=== PATIENT | male | born 1960 | race Caucasian/White ===

== ENCOUNTER 2020-09-27 09:02 | Outpatient (REF) | payer MEDICARE, MEDICAID, SELFPAY | END 2020-09-27 09:03 | disposition home or self-care (01) | LOC: HO.LAB 09:02 | PROVIDERS: Visit Provider Internal Medicine | DX: Z20.822 Contact with and (suspected) exposure to COVID-19 (principal) | CPT/HCPCS: 36415; C9803; U0003; U0005 ==

== ENCOUNTER 2021-01-13 19:35 | Emergency (ER) | payer MEDICARE, MEDICAID, SELFPAY ==
--- NOTE | ~2021-01-13 | XR_ITS ---
EXAMINATION: XR RIBS, RIGHT CLINICAL INFORMATION: Fall. Pain. COMPARISON: Chest x-ray 09/22/2019 TECHNIQUE: Frontal view of chest 3 views of the right ribs were obtained. FINDINGS: Asymmetric elevation of right diaphragm compared to left. Blunting of right costophrenic angle. This may be due to a small pleural effusion or pleural thickening. This is new since prior study 09/22/2019. Also new since prior chest x-ray is the transpedicular screws and vertical stabilization bars of the mid upper thoracic spine vertebral bodies. No acute change of chest. No pulmonary vascular congestion. No pneumothorax. No focal airspace consolidation. Multiple old healed right-sided rib fractures involving the right posterior sixth through ninth ribs. No acute osseous abnormality. XR/XR ribs RT min 3V w CXR1V IMPRESSION: 1. Old healed fractures of the right posterior sixth through ninth ribs. No acute osseous abnormality. Status post fusion with transpedicular screws of the thoracic spine. 2. Elevated right diaphragm with blunting right costophrenic angle. This may be due to pleural thickening or pleural effusion.
--- NOTE | ~2021-01-13 | XR_ITS ---
EXAMINATION: XR SHOULDER, RIGHT CLINICAL INFORMATION: Fall. Decreased range of motion. COMPARISON: None TECHNIQUE: Three views of the right shoulder. FINDINGS: There is no fracture. No dislocation. No soft tissue calcification. There is degenerative spur of the inferior humeral head of the glenohumeral joint. There are spurs of the acromion and clavicle at the acromioclavicular joint. A spur of the inferior acromion may be causing impingement at the rotator cuff. XR/XR shoulder RT min 2V IMPRESSION: 1. No acute abnormality. 2. Degenerative change of the acromioclavicular and glenohumeral joints.
[2021-01-13 20:42] VITALS: BP 156/83; PULSE 80; RESP 20; TEMP 36.4; O2SAT 96; BMI 28.8
--- NOTE | 2021-01-13 21:39 | ED.FALL ---
HPI - Fall General Chief Complaint: Fall Stated Complaint: fall Time Seen by Provider: 01/13/21 21:21 Source: patient Mode of arrival: ambulatory Limitations: no limitations History of Present Illness HPI Narrative: Patient fell sideways offices today broke his fall using his right outstretched hand complaining of pain in the right shoulder area increased pain on lifting his arm above his shoulder also complaining of pain in the right upper ribs no difficulty in breathing no head injury no other injuries Related Data Previous Rx's Medication Instructions Recorded cyclobenzaprine 10 mg PO Q8H #20 tab 01/13/21 oxycodone 5 mg PO Q6H PRN #20 tab 01/13/21 Allergies Allergy/AdvReac Type Severity Reaction Status Date / Time ciprofloxacin [Cipro] Allergy Unknown had Verified 01/13/21 20:42 itchness once been on since lactose [Lactose] AdvReac Mild DIARRHEA Verified 01/13/21 20:42 Review of Systems Review of Systems: Yes all other systems are reviewed and are negative [facility] Social History Social History Advance Directives: No Advance Directives Information Provided: No Physical Exam Vital Signs: Vital Signs: Last Vital Signs Temp 97.6 F 01/13/21 20:42 Pulse 80 01/13/21 20:42 Resp 20 01/13/21 20:42 BP 156/83 H 01/13/21 20:42 Pulse Ox 96 01/13/21 20:42 Body Mass Index 28.8 Const: General: no acute distress and well developed Orientation/consciousness: patient oriented x3 HENMT: Head: Yes normocephalic and Yes atraumatic Neck: Neck: Yes normal visual inspection, Yes full ROM and No midline deformity Chest: Chest palpation & inspection: normal inspection of the chest Chest/axillae images: 1. Mild tenderness right mid thoracic area in mid axillary line no focal tenderness or crepitus Resp: Effort & Inspection: normal respiratory effort Auscultation: clear to auscultation bilaterally Cardio: Palpation: normal PMI Rate: regular rate Rhythm: regular rhythm Heart sounds: S1 normal heart sound present and S2 normal heart sound present GI: Inspection: Yes normal to inspection Palpation (GI): Soft to palpation and nontender : General: Yes no CVA tenderness Back/Spine/Pelvis: Back: no CVA tenderness Thoracic/Lumbar Spine: thoracic and lumbar spine normal to inspection Neuro: General: patient oriented x3, gait normal, moves all extremities and no focal motor deficits Extrem: Shoulder/upper arm images: 1. Right rotator cuff tenderness, increased pain on abduction of the right shoulder above 45 degrees open can test positive on right side neurovascular intact MDM - Fall MDM Narrative Medical decision making narrative: Patient clinically has right rotator cuff tendinitis not rupture. X-ray negative for fracture or fluid collection Discharge Plan Discharge Clinical Impression: Strain of tendon of right rotator cuff Qualifiers: Encounter type: initial encounter Qualified Code(s): S46.011A - Strain of muscle(s) and tendon(s) of the rotator cuff of right shoulder, initial encounter Patient Disposition: Home, Self-Care Instructions: Rotator Cuff Injury (ED) Additional Instructions: Rest her right shoulder. Use sling for support. Pain medicine as advised. Follow-up with Orthopedics for further evaluation and treatment Prescriptions: New cyclobenzaprine 10 mg tablet 10 mg PO Q8H Qty: 20 RF: 0 oxycodone 5 mg tablet 5 mg PO Q6H PRN (Reason: Pain, Moderate) Qty: 20 RF: 0
[2021-01-13] MEDS: oxyCODONE HCl Immed Release 5 MG TABLET 10 MG PO (22:10)
== END 2021-01-13 22:50 | disposition home or self-care (01) ==
PROVIDERS: Emergency Provider Internal Medicine; PCP Internal Medicine
DX: S46.011A Strain of muscle(s) and tendon(s) of the rotator cuff of right shoulder, initial encounter (principal); W17.89XA Other fall from one level to another, initial encounter; Y93.89 Activity, other specified; Y92.017 Garden or yard in single-family (private) house as the place of occurrence of the external cause; Y99.9 Unspecified external cause status; E66.9 Obesity, unspecified; J44.9 Chronic obstructive pulmonary disease, unspecified
CPT/HCPCS: 71101; 73030; 99283; 99284

== ENCOUNTER 2021-01-23 12:52 | Outpatient (REF) | payer MEDICARE, MEDICAID, SELFPAY ==
--- NOTE | ~2021-01-23 | XR_ITS ---
EXAMINATION: XR CHEST CLINICAL INFORMATION: Shortness of breath COMPARISON: Chest 01/13/2021 TECHNIQUE: 2 views of the chest were obtained. FINDINGS: There is mild blunting of right CP angle with an haziness in right lung base likely effusion with underlying atelectasis at size enlarged. Pulmonary vascularity is normal. Previously visualized right posterior lower rib fractures are not clearly visualized. Abnormality seen in the right lower lobe is likely related to the rib fractures XR/XR chest 2V IMPRESSION: On the right CP angle from pleural effusion/thickening and underlying right lower lobe atelectasis. Previously visualized right rib fractures are not well seen at this time is
== END 2021-01-23 12:53 | disposition home or self-care (01) ==
LOC: HO.HMGCX 12:52
PROVIDERS: PCP Internal Medicine; Visit Provider Hospitalist
DX: R06.02 Shortness of breath (principal)
CPT/HCPCS: 71046

== ENCOUNTER 2021-01-23 13:52 | Emergency (ER) | payer MEDICARE, MEDICAID, SELFPAY ==
--- NOTE | ~2021-01-23 | CT_ITS ---
EXAMINATION: CT ANGIOGRAM OF THE CHEST WITH AND WITHOUT CONTRAST (CT PULMONARY ANGIOGRAM FOR PE) CLINICAL INFORMATION: Reason for Exam pt c sob ? pe COMPARISON: Chest CT dated October 28, 2017. TECHNIQUE: Prior to contrast administration, noncontrast localization images were obtained. Subsequently, multidetector volumetric imaging was performed from the thoracic inlet to below the diaphragms following the administration of 80 mL Omnipaque 350 intravenous contrast. No contrast reaction reported Sagittal, coronal, and MIP oblique sagittal reformatted images were obtained on the CT workstation, uploaded to PACS, and reviewed. This CT examination was performed using dose optimization techniques as appropriate, variously including the following: *Automated exposure control *Adjustment of mA and/or kV according to patient size (this includes techniques or standardized protocols for targeted exams where dose is matched to indication/reason for exam; i.e. extremities or head) *Use of iterative reconstruction technique Total exam dose-length product 495 mGy-cm FINDINGS: QUALITY OF STUDY/CONTRAST BOLUS: Satisfactory. PULMONARY ARTERIES: No central or segmental pulmonary emboli. THORACIC AORTA: No aneurysm or dissection. LUNG: No focal consolidation, nodules or masses. PLEURA: No pleural effusion or pneumothorax. MEDIASTINUM: Normal heart size. No pericardial effusion. No hilar or mediastinal lymphadenopathy. No evidence of septal bowing or right heart strain. CHEST WALL/AXILLA: No axillary or internal mammary lymphadenopathy. OSSEOUS STRUCTURES: Chronic bilateral rib fracture deformities. No acute osseous injury posterior instrumentation extends from the level of C4-C8. Hardware components are intact. UPPER ABDOMEN: Unremarkable. No reflux of contrast into the hepatic veins to suggest elevated right heart pressures. CT/CT angio chest PE protocol IMPRESSION: 1. No evidence of pulmonary embolism. 2. No consolidation. VTE: negative
[2021-01-23 14:05] VITALS: BP 177/80; PULSE 82; RESP 28; TEMP 36.7; O2SAT 94
--- NOTE | 2021-01-23 14:28 | ECG_ITS ---
Test Reason : SOB Blood Pressure : / mmHG Vent. Rate : 078 BPM Atrial Rate : 078 BPM P-R Int : 150 ms QRS Dur : 078 ms QT Int : 400 ms P-R-T Axes : 047 031 058 degrees QTc Int : 456 ms Normal sinus rhythm Nonspecific T wave abnormality Abnormal ECG When compared with ECG of 28-OCT-2017 03:09, Nonspecific T wave abnormality no longer evident in Inferior leads QT has lengthened Referred By: Alexa Moyer Electronically Signed By:ROBERT BENZ MD
[2021-01-23 15:30] LABS: Basophils Percent Auto 0.4 % (0-2); Eosinophils Percent Auto 0.7 % (0-4); Hematocrit 42.3 % (42-52); Lymphocytes Absolute Auto 2.4 X10*3/uL (1.2-4.9); Lymphocytes Percent Auto 43.9 % (20-40); MANUAL DIFF FLAG SCAN; Mean Corpuscular HGB Conc 33.1 g/dl (31.0-36.0); Mean Corpuscular Hemoglobin 30.4 pg (27.0-33.0); Mean Platelet Volume 9.6 fL (9.4-12.4); Monocytes Absolute Auto 0.6 X10*3/uL (0.1-1.2); Monocytes Percent Auto 10.7 % (2-11); Neutrophils Absolute Auto 2.4 X10*3/uL (2.0-8.3); Neutrophils Percent Auto 44.3 % (45-73); Platelet Count 261 X10*3/uL (160-400); Red Cell Distribution Width 12.2 % (11.0-16.0); SCAN SMEAR FLAG 1; White Blood Count 5.4 X10*3/uL (4.8-10.8)
[2021-01-23 15:37] LABS: INTERNATIONAL NORM RATIO 1.2 (0.9-1.1); Prothrombin Time 14.6 SEC (10.8-13.0)
[2021-01-23 15:46] LABS: SLIDE REVIEW VERIFIED
[2021-01-23 15:47] LABS: COVID-19 Test Negative (Negative)
[2021-01-23 15:52] LABS: Alanine Aminotransferase 20 U/L (0-40); Albumin Level 4.2 g/dL (3.5-5.0); Alkaline Phosphatase 66 U/L (39-117); Anion Gap 16 (12-20); Aspartate Amino Transferase 16 U/L (5-37); Bilirubin Total 0.4 mg/dL (0.0-1.0); Blood Urea Nitrogen 15 mg/dL (9-16); Calcium 9.1 mg/dL (8.4-10.2); Carbon Dioxide 23 mmol/L (22-29); Chloride 107 mmol/L (96-108); Creatinine Clr Calc Pharmacy 157.3; Estimated Glomerular Filt Rate > 60; Glucose Random 102 mg/dL (60-115); Potassium 3.9 mmol/L (3.3-5.1); Sodium 142 mmol/L (135-145); Total Protein 6.9 g/dL (6.5-8.0)
[2021-01-23 15:58] LABS: B Type Natriuretic Peptide 47 pg/mL (<100)
[2021-01-23 16:04] LABS: Troponin-I High Sensitivity < 3.5 ng/L (<3.5-35.0)
[2021-01-23 17:24] VITALS: BP 184/92; PULSE 77; RESP 16; O2SAT 96
[2021-01-23 17:28] VITALS: BP 184/92; PULSE 78; RESP 17; TEMP 36.7; O2SAT 96
[2021-01-23 19:44] LABS: Lactic Acid 1.4 mmol/L (0.5-2.0)
[2021-01-23] MEDS: iohexoL 350 MG/ML 100 ML INFUS..BTL IV (19:50)
[2021-01-23] MEDS: Morphine Sulfate 4 MG/ML CARTRIDGE IVPUSH (19:56)
[2021-01-23 20:36] VITALS: BP 162/77; PULSE 76; RESP 17; TEMP 36.9; O2SAT 93
[2021-01-23 21:05] VITALS: PULSE 82; O2SAT 94
[2021-01-23 21:05] LABS: Troponin-I High Sensitivity < 3.5 ng/L (<3.5-35.0)
[2021-01-23] MEDS: Albuterol/Iprat 2.5/0.5MG 3 ML AMPUL.NEB INHALE (21:05)
[2021-01-23] MEDS: Magnesium Sulfate/H2O 2 GM/50 ML PIGGYBACK IV (21:23)
[2021-01-23] MEDS: methylPREDNISolone Sod Succ 125 MG/2 ML VIAL IVPUSH (21:24)
[2021-01-23 21:25] VITALS: BP 144/87; PULSE 92; RESP 20; O2SAT 95
--- NOTE | 2021-01-23 22:03 | ED_ITS ---
HPI - General Adult General Chief complaint: Dyspnea Stated complaint: Fluid in Lungs, urgent care sent over Time Seen by Provider: 01/23/21 14:24 Source: patient Mode of arrival: ambulatory Limitations: no limitations History of Present Illness HPI narrative: Patient was sent over to the ED from urgent care for pleural effusion on x-ray reading at Urgent Care today. Patient complained of shortness of breath and coughing for 1 week. Patient states his grandchildren having URI symptoms. Patient denies any swelling of lower extremities, calf pain, coughing up blood, dizziness, weakness, or chest pain. Patient is status post rib fractures couple of weeks ago. Patient denies any recent trauma since then. Related Data Previous Rx's Medication Instructions Recorded cyclobenzaprine 10 mg PO Q8H #20 tab 01/13/21 oxycodone 5 mg PO Q6H PRN #20 tab 01/13/21 albuterol sulfate 2 puff INHALATION QID PRN #8.5 g 01/23/21 azithromycin See Rx Instructions .ROUTE 01/23/21 .COMPLEX #6 tab benzonatate [Tessalon Perles] 100 mg PO TID PRN #15 cap 01/23/21 prednisone 40 mg PO DAILY #10 tab 01/23/21 Allergies Allergy/AdvReac Type Severity Reaction Status Date / Time ciprofloxacin [Cipro] Allergy Unknown had Verified 01/23/21 12:43 itchness once been on since lactose [Lactose] AdvReac Mild DIARRHEA Verified 01/23/21 12:43 Review of Systems Review of Systems: Yes all other systems are reviewed and are negative Constitutional: Constitutional: Reports as per HPI and Reports no additional constitutional complaints Eyes: Eyes: Reports as per HPI and Reports no additional eye complaints ENT: Reports system reviewed and no additional complaints, except as documented and Reports as per HPI Cardiovascular: Cardiovascular: Reports as per HPI, Reports no additional cardiovascular complaints, Denies chest pain and Reports dyspnea Respiratory: Respiratory: Reports as per HPI, Reports no additional respiratory complaints, Reports cough and Reports dyspnea Gastrointestinal: Gastrointestinal: Reports as per HPI and Reports no additional gastrointestinal complaints Genitourinary: Genitourinary: Reports no additional male genitourinary complaints and Reports as per HPI Musculoskeletal: Musculoskeletal: Reports no additional musculoskeletal complaints and Reports as per HPI Neurologic: Reports system reviewed and no additional complaints, except as documented and Reports as per HPI Psychiatric: Psychiatric: Reports no additional psychiatric complaints and Reports as per [facility] Social History Social History Alcohol intake: current Alcohol intake frequency: holidays/special occasions only Patient Tobacco Use Status: Never used Tobacco Use of substances other than those prescribed or required for medical reasons: No Advance Directives: No Advance Directives Information Provided: No Physical Exam Vital Signs: Vital Signs: Last Vital Signs Temp 98.4 F 01/23/21 20:36 Pulse 92 01/23/21 21:25 Resp 20 01/23/21 21:25 BP 144/87 H 01/23/21 21:25 Pulse Ox 95 01/23/21 21:25 Body Mass Index 0.4 Const: General: cooperative, healthy appearing, comfortable, no acute distress, well developed, alert, awake and Physically active HENMT: Head: Yes normal to inspection, Yes No palpable skull fracture present, Yes normocephalic and No atraumatic Eyes: General: appearance normal, both eyes and all related structures Neck: Neck: Yes normal visual inspection and Yes full ROM Chest: Chest palpation & inspection: normal inspection of the chest and normal palpation of entire chest wall Resp: Effort & Inspection: normal respiratory effort and able to speak in complete sentences Auscultation: wheezes (Wheezing) expiratory wheezes Cardio: Jugular venous distension: no JVD Heart sounds: S1 normal heart sound present and S2 normal heart sound present GI: Inspection: Yes normal to inspection and No abdominal wall ecchymosis Palpation (GI): Soft to palpation, not firm, nontender, no guarding and not rigid : General: No CVA tenderness and Yes no CVA tenderness Back/Spine/Pelvis: Back: no CVA tenderness, No CVA tenderness and No back tenderness Skin: General skin exam: no rashes or lesions noted and elasticity normal Neuro: General: patient oriented x3, gait normal and CN's II-XI intact bilaterally Cranial nerves: Yes CN's II-XII intact bilaterally Extrem: Other: Lower extremities negative for swelling, pitting edema, or calf tenderness General: Yes normal to inspection and Yes full ROM Psych: Appearance: grossly normal, well kempt and not disheveled Course Course Course Narrative: Patient have a medical evaluation. Patient had rapid medical screening. X-ray shows pleural effusion chest CT a order to confirm perfusion make sure there is no PE. Reevaluation(s) Reevaluation #1: Labs are normal or baseline. BNP negative. Troponin negative. EKG negative for STEMI. Patient labs are normal at baseline. COVID swab negative. Time: 15:11 Reevaluation #2: Chest CT came back negative for PE, pneumonia, or effusion. Lactic acid normal. Patient having bronchitis like symptoms. Will give albuterol Solu-Medrol, magnesium. Time: 22:14 Reevaluation #3: Second troponin negative. Patient is safe for discharge. Room air O2 saturation 95%. Patient speaking in full sentences and not using accessory muscles. Patient states he feels better. Time: 22:15 Medical Decision Making MDM Narrative Medical decision making narrative: Bronchitis Lab Data Result diagrams: 01/23/21 15:11 01/23/21 15:11 Labs: Lab Results 01/23/21 01/23/21 01/23/21 Range/Units 15:11 15:11 15:11 WBC 5.4 (4.8-10.8) X10*3/uL RBC 4.60 (4.60-5.80) X10*6/uL Hgb 14.0 (14.0-18.0) g/dl Hct 42.3 (42-52) % MCV 92.0 (80-98) fL MCH 30.4 (27.0-33.0) pg MCHC 33.1 (31.0-36.0) g/dl RDW 12.2 (11.0-16.0) % Plt Count 261 (160-400) X10*3/uL MPV 9.6 (9.4-12.4) fL Immature Gran % (Auto) 0.0 (0.0-0.4) % Neut % (Auto) 44.3 L (45-73) % Lymph % (Auto) 43.9 H (20-40) % [place] % (Auto) 10.7 (2-11) % Eos % (Auto) 0.7 (0-4) % Baso % (Auto) 0.4 (0-2) % Lymph # (Auto) 2.4 (1.2-4.9) X10*3/uL [place] # (Auto) 0.6 (0.1-1.2) X10*3/uL Eos # (Auto) 0.0 (0.0-0.4) X10*3/uL Baso # (Auto) 0.0 (0.0-0.2) X10*3/uL Abs Immat Gran (auto) 0.00 (0.00-0.03) X10*3/uL Absolute Neuts (auto) 2.4 (2.0-8.3) X10*3/uL Absolute Nucleated RBC 0.000 (0.0-0.012) X10*3/uL Nucleated RBC % (auto) 0.0 (0.0-0.2) /100WBC Smear Tech's Comments VERIFIED PT 14.6 H (10.8-13.0) SEC INR 1.2 H (0.9-1.1) Sodium 142 (135-145) mmol/L Potassium 3.9 (3.3-5.1) mmol/L Chloride 107 (96-108) mmol/L Carbon Dioxide 23 (22-29) mmol/L Anion Gap 16 (12-20) BUN 15 (9-16) mg/dL Creatinine 0.84 (0.5-1.4) mg/dL Estim Creat Clear Calc 157.3 Estimated GFR > 60 Random Glucose 102 (60-115) mg/dL Lactic Acid (0.5-2.0) mmol/L Calcium 9.1 (8.4-10.2) mg/dL Total Bilirubin 0.4 (0.0-1.0) mg/dL AST 16 (5-37) U/L ALT 20 (0-40) U/L Alkaline Phosphatase 66 (39-117) U/L Troponin I High Sens (<3.5-35.0) ng/L B-Natriuretic Peptide (<100) pg/mL Total Protein 6.9 (6.5-8.0) g/dL Albumin 4.2 (3.5-5.0) g/dL COVID-19 ([facility]ANG[facility]) (Negative) COVID-19 Clin Com 01/23/21 01/23/21 01/23/21 Range/Units 15:11 15:11 15:17 WBC (4.8-10.8) X10*3/uL RBC (4.60-5.80) X10*6/uL Hgb (14.0-18.0) g/dl Hct (42-52) % MCV (80-98) fL MCH (27.0-33.0) pg MCHC (31.0-36.0) g/dl RDW (11.0-16.0) % Plt Count (160-400) X10*3/uL MPV (9.4-12.4) fL Immature Gran % (Auto) (0.0-0.4) % Neut % (Auto) (45-73) % Lymph % (Auto) (20-40) % [place] % (Auto) (2-11) % Eos % (Auto) (0-4) % Baso % (Auto) (0-2) % Lymph # (Auto) (1.2-4.9) X10*3/uL [place] # (Auto) (0.1-1.2) X10*3/uL Eos # (Auto) (0.0-0.4) X10*3/uL Baso # (Auto) (0.0-0.2) X10*3/uL Abs Immat Gran (auto) (0.00-0.03) X10*3/uL Absolute Neuts (auto) (2.0-8.3) X10*3/uL Absolute Nucleated RBC (0.0-0.012) X10*3/uL Nucleated RBC % (auto) (0.0-0.2) /100WBC Smear Tech's Comments PT (10.8-13.0) SEC INR (0.9-1.1) Sodium (135-145) mmol/L Potassium (3.3-5.1) mmol/L Chloride (96-108) mmol/L Carbon Dioxide (22-29) mmol/L Anion Gap (12-20) BUN (9-16) mg/dL Creatinine (0.5-1.4) mg/dL Estim Creat Clear Calc Estimated GFR Random Glucose (60-115) mg/dL Lactic Acid (0.5-2.0) mmol/L Calcium (8.4-10.2) mg/dL Total Bilirubin (0.0-1.0) mg/dL AST (5-37) U/L ALT (0-40) U/L Alkaline Phosphatase (39-117) U/L Troponin I High Sens < 3.5 (<3.5-35.0) ng/L B-Natriuretic Peptide 47 (<100) pg/mL Total Protein (6.5-8.0) g/dL Albumin (3.5-5.0) g/dL COVID-19 ([facility]ANGITA) Negative (Negative) COVID-19 Clin Com See Note 01/23/21 01/23/21 Range/Units 19:16 20:25 WBC (4.8-10.8) X10*3/uL RBC (4.60-5.80) X10*6/uL Hgb (14.0-18.0) g/dl Hct (42-52) % MCV (80-98) fL MCH (27.0-33.0) pg MCHC (31.0-36.0) g/dl RDW (11.0-16.0) % Plt Count (160-400) X10*3/uL MPV (9.4-12.4) fL Immature Gran % (Auto) (0.0-0.4) % Neut % (Auto) (45-73) % Lymph % (Auto) (20-40) % [place] % (Auto) (2-11) % Eos % (Auto) (0-4) % Baso % (Auto) (0-2) % Lymph # (Auto) (1.2-4.9) X10*3/uL [place] # (Auto) (0.1-1.2) X10*3/uL Eos # (Auto) (0.0-0.4) X10*3/uL Baso # (Auto) (0.0-0.2) X10*3/uL Abs Immat Gran (auto) (0.00-0.03) X10*3/uL Absolute Neuts (auto) (2.0-8.3) X10*3/uL Absolute Nucleated RBC (0.0-0.012) X10*3/uL Nucleated RBC % (auto) (0.0-0.2) /100WBC Smear Tech's Comments PT (10.8-13.0) SEC INR (0.9-1.1) Sodium (135-145) mmol/L Potassium (3.3-5.1) mmol/L Chloride (96-108) mmol/L Carbon Dioxide (22-29) mmol/L Anion Gap (12-20) BUN (9-16) mg/dL Creatinine (0.5-1.4) mg/dL Estim Creat Clear Calc Estimated GFR Random Glucose (60-115) mg/dL Lactic Acid 1.4 (0.5-2.0) mmol/L Calcium (8.4-10.2) mg/dL Total Bilirubin (0.0-1.0) mg/dL AST (5-37) U/L ALT (0-40) U/L Alkaline Phosphatase (39-117) U/L Troponin I High Sens < 3.5 (<3.5-35.0) ng/L B-Natriuretic Peptide (<100) pg/mL Total Protein (6.5-8.0) g/dL Albumin (3.5-5.0) g/dL COVID-19 ([facility]) (Negative) COVID-19 Clin Com ECG Data Interpretation: Normal sinus rhythm. Nonspecific T-wave abnormality. Ventricular rate 78. Pr interval 150. QRS 78. QTC 456. Negative STEMI Discharge Plan Discharge Clinical Impression: Bronchitis Patient Disposition: Home, Self-Care Instructions: Acute Bronchitis (ED) Additional Instructions: Return to the ED for any chest pain, shortness of breath, swelling of lower extremities, calf pain, coughing up blood, fever, chills, weakness, shortness of breath on exertion, coughing up blood, or any other concerning symptoms. The EKG and troponins came back negative for heart attack. BNP was negative. COVID swab came back negative. Chest CTA came back negative for PE, effusion, or pneumonia. Please follow-up with PCP Prescriptions: New prednisone 20 mg tablet 40 mg PO DAILY Qty: 10 RF: 0 albuterol sulfate 90 mcg/actuation HFA aerosol inhaler 2 puff inhalation QID PRN (Reason: bronchitis) Qty: 8.5 RF: 0 azithromycin 500 mg tablet See Rx Instructions .ROUTE .COMPLEX Qty: 6 RF: 0 benzonatate [Tessalon Perles] 100 mg capsule 100 mg PO TID PRN (Reason: cough) Qty: 15 RF: 0 No Action cyclobenzaprine 10 mg tablet 10 mg PO Q8H Qty: 20 RF: 0 oxycodone 5 mg tablet 5 mg PO Q6H PRN (Reason: Pain, Moderate) Qty: 20 RF: 0 Referrals: MuggMiles MD [Primary Care Provider] - 2 days (URI/bronchitis exacerbation. EKG negative for heart attack. Troponins were negative. BNP negative. Chest CT negative for PE, pneumonia, or effusion) Stand Alone Forms: Work/School Release Print Language: Latvian
== END 2021-01-23 22:34 | disposition home or self-care (01) ==
PROVIDERS: Physician Assistant; Physician Assistant Medical; Emergency Provider Emergency Medicine; PCP Internal Medicine
DX: J20.9 Acute bronchitis, unspecified (principal); Z20.822 Contact with and (suspected) exposure to COVID-19
CPT/HCPCS: 36415; 71275; 80053; 83605; 83880; 84484; 85025; 85610; 87040; 87635; 93005; 94640; 96365; 96366; 96375; 99284; 99285; J2270; J2930; J3475; Q9967

== ENCOUNTER 2021-08-12 12:31 | Outpatient (REF) | payer MEDICARE, MEDICAID, SELFPAY ==
--- NOTE | ~2021-08-12 | XR_ITS ---
EXAMINATION: XR HIP, RIGHT CLINICAL INFORMATION: Pain with tenderness right SI joint plus SL are COMPARISON: CT abdomen and pelvis 10/30/2014 TECHNIQUE: Two views of the right hip. FINDINGS: No fracture or dislocation. The right hip is well-seated within the acetabulum. Mild degenerative changes in the right hip. XR/XR hip RT min 2V IMPRESSION: Mild degenerative changes in the right hip.
--- NOTE | ~2021-08-12 | XR_ITS ---
EXAMINATION: XR LUMBOSACRAL SPINE CLINICAL INFORMATION: PAIN WITH TENDERNESS R/SI JOINT + SLR AT 70' R/O FX, DJ COMPARISON: CT abdomen and pelvis 10/30/2014 TECHNIQUE: Three views of the lumbosacral spine. FINDINGS: Grade 1 anterolisthesis of L5 on S1. Posterior facet hypertrophy in the lower lumbar spine. Degenerative disc disease at L5-S1. Vertebral body heights are fairly well-preserved. Small marginal osteophyte formation. The sacroiliac joints are intact. Surgical clips project over the right iliac bone on the frontal view. XR/XR lumbar spine 2-3V IMPRESSION: Grade 1 anterolisthesis of L5 on S1 with moderate degenerative disc disease.
== END 2021-08-12 12:32 | disposition home or self-care (01) ==
LOC: HO.XRAY 12:31
PROVIDERS: PCP Internal Medicine; Visit Provider Internal Medicine
DX: R06.02 Shortness of breath (principal); M53.3 Sacrococcygeal disorders, not elsewhere classified
CPT/HCPCS: 72100; 73502

== ENCOUNTER → 2021-08-19 09:58 | Outpatient (BNVA) | payer MEDICARE, MEDICAID, SELFPAY | PROVIDERS: PCP Internal Medicine; Visit Provider Urology | DX: R35.1 Nocturia (principal); N32.0 Bladder-neck obstruction; E29.1 Testicular hypofunction | CPT/HCPCS: 99202 ==

== ENCOUNTER 2021-08-27 09:00 | Outpatient (REF) | payer MEDICARE, MEDICAID, SELFPAY ==
--- NOTE | ~2021-08-27 | US_ITS ---
EXAMINATION: US PELVIS LIMITED (BLADDER) CLINICAL INFORMATION: Poor urinary stream. COMPARISON: CT abdomen and pelvis 10/30/2014. TECHNIQUE: Real-time imaging of the bladder. FINDINGS: BLADDER: Well distended. No stone, wall thickening or mass is seen. There is a small cystic area at the base of the bladder measuring 9 x 7 x 11 mm. questionable for a ureterocele. Bilateral ureteral jets are demonstrated. Prevoid bladder volume is 212 mL. Postvoid bladder volume is 25.4 mL. The prostate gland is normal in size. The prostate gland measures 2.9 x 3.8 x 2.9 cm. Prostate volume 17.0 mL. US/US bladder IMPRESSION: Normal size prostate gland. Small 25 mL post void bladder residual. Cystic area in the base of the bladder questionable for a ureterocele.
== END 2021-08-27 09:01 | disposition home or self-care (01) ==
LOC: HO.HMGCX 09:00
PROVIDERS: PCP Internal Medicine; Visit Provider Urology
DX: R39.12 Poor urinary stream (principal); N32.0 Bladder-neck obstruction
CPT/HCPCS: 76857

== ENCOUNTER → 2021-10-03 10:20 | Outpatient (BNVA) | payer MEDICARE, MEDICAID, SELFPAY | PROVIDERS: PCP Internal Medicine; Visit Provider Urology | DX: N32.0 Bladder-neck obstruction (principal); R35.1 Nocturia; E29.1 Testicular hypofunction | CPT/HCPCS: 99212 ==

== ENCOUNTER 2022-03-25 08:11 | Outpatient (REF) | payer MEDICARE, MEDICAID, SELFPAY ==
[2022-03-26 14:17] LABS: Sex Hormone Binding Globulin 34 nmol/L (22-77)
[2022-03-30 01:26] LABS: Testosterone, Total 240 ng/dL (250-1100)
[2022-03-30 16:47] LABS: Testosterone, Total 265 ng/dL (250-1100)
[2022-04-01 22:57] LABS: Estradiol Ultra Sensitive 14 pg/mL (< OR = 29)
== END 2022-03-25 08:12 | disposition home or self-care (01) ==
LOC: HO.10HDL 08:11
PROVIDERS: Visit Provider Urology
DX: E29.1 Testicular hypofunction (principal); N32.0 Bladder-neck obstruction
CPT/HCPCS: 36415; 82670; 84270; 84402; 84403

== ENCOUNTER → 2022-04-03 10:06 | Outpatient (BNVA) | payer MEDICARE, MEDICAID, SELFPAY | PROVIDERS: PCP Internal Medicine; Visit Provider Urology | DX: R39.14 Feeling of incomplete bladder emptying (principal); E29.1 Testicular hypofunction; R35.1 Nocturia; R39.12 Poor urinary stream; N32.0 Bladder-neck obstruction; G47.33 Obstructive sleep apnea (adult) (pediatric); E66.9 Obesity, unspecified | CPT/HCPCS: 51798; 99212 ==

== ENCOUNTER 2022-04-12 13:56 | Emergency (ER) | payer OTHER, SELFPAY ==
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
[2022-04-12 14:02] VITALS: BP 163/77; PULSE 84; RESP 16; TEMP 36.6; O2SAT 98; BMI 37.6
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
== END 2022-04-12 16:42 | disposition home or self-care (01) ==
PROVIDERS: Emergency Provider Emergency Medicine; PCP Internal Medicine
DX: M54.6 Pain in thoracic spine (principal); Z79.899 Other long term (current) drug therapy
CPT/HCPCS: 72070; 99283

== ENCOUNTER 2022-06-17 08:03 | Outpatient (REF) | payer MEDICARE, MEDICAID, SELFPAY ==
[2022-06-22 16:51] LABS: Testosterone, Free 51.6 pg/mL (35.0-155.0); Testosterone, Total 288 ng/dL (250-1100)
== END 2022-06-17 08:04 | disposition home or self-care (01) ==
LOC: HO.10HDL 08:03
PROVIDERS: Visit Provider Urology
DX: E29.1 Testicular hypofunction (principal)
CPT/HCPCS: 36415; 84402; 84403

== ENCOUNTER → 2022-07-02 13:57 | Outpatient (BNVA) | payer MEDICARE, MEDICAID, SELFPAY | PROVIDERS: PCP Internal Medicine; Visit Provider Urology | DX: E29.1 Testicular hypofunction (principal); R35.1 Nocturia; N32.0 Bladder-neck obstruction | CPT/HCPCS: Q3014 ==

== ENCOUNTER 2022-12-04 12:52 | Outpatient (REF) | payer MEDICARE, MEDICAID, SELFPAY ==
--- NOTE | ~2022-12-04 | XR_ITS ---
EXAMINATION: XR CHEST CLINICAL INFORMATION: Cough. Rule out PNA COMPARISON: Chest 01/23/2021 TECHNIQUE: 2 views of the chest were obtained. FINDINGS: The lungs are well-expanded with moderate opacity seen in the right lung base likely effusion or atelectasis. The right upper lung and the left lung remains clear. Heart size is enlarged. Pulmonary vascularity is normal. There are pedicular screws and 2 short interconnecting rods in the upper thoracic spine for correction of scoliosis. Mild spur spondylosis seen. No gross bony abnormality. XR/XR chest 2V IMPRESSION: 1. Moderate opacity right lung base likely pleural effusion or atelectasis. The left lung remains clear. 2. Mild cardiomegaly.
== END 2022-12-04 12:53 | disposition home or self-care (01) ==
LOC: HO.HMGCX 12:52
PROVIDERS: PCP Internal Medicine; Visit Provider Internal Medicine
DX: R05.9 Cough, unspecified (principal)
CPT/HCPCS: 71046

== ENCOUNTER 2022-12-25 07:32 | Outpatient (REF) | payer MEDICARE, MEDICAID, SELFPAY ==
[2022-12-25 10:33] LABS: Hemoglobin 16.6 g/dl (14.0-18.0); Mean Corpuscular HGB Conc 33.2 g/dl (31.0-36.0); Mean Corpuscular Hemoglobin 30.5 pg (27.0-33.0); Mean Corpuscular Volume 91.9 fL (80.0-98.0); Mean Platelet Volume 11.3 fL (9.4-12.4); Platelet Count 220 X10*3/uL (160-400); Red Blood Count 5.44 X10*6/uL (4.60-5.80); Red Cell Distribution Width 13.7 % (11.0-16.0); White Blood Count 6.2 X10*3/uL (4.8-10.8)
[2022-12-25 11:22] LABS: Prostate Specific Antigen 3.07 ng/mL (<0.05-4.0)
[2023-01-03 11:38] LABS: Testosterone, Total 1083 ng/dL (250-1100)
== END 2022-12-25 07:33 | disposition home or self-care (01) ==
LOC: HO.10HDL 07:32
PROVIDERS: Visit Provider Urology
DX: Z12.5 Encounter for screening for malignant neoplasm of prostate (principal); E29.1 Testicular hypofunction
CPT/HCPCS: 36415; 84153; 84403; 85027

== ENCOUNTER → 2023-01-12 13:12 | Outpatient (BNVA) | payer MEDICARE, MEDICAID, SELFPAY | PROVIDERS: PCP Internal Medicine; Visit Provider Nurse Practitioner Family | DX: E29.1 Testicular hypofunction (principal); N40.1 Benign prostatic hyperplasia with lower urinary tract symptoms; N13.8 Other obstructive and reflux uropathy; R35.1 Nocturia | CPT/HCPCS: 51798; 99212 ==

== ENCOUNTER 2023-01-21 07:33 | Outpatient (REF) | payer MEDICARE, MEDICAID, SELFPAY ==
[2023-01-21 11:23] LABS: Hematocrit 50.4 % (42.0-52.0); Hemoglobin 16.5 g/dl (14.0-18.0)
[2023-01-21 11:55] LABS: PSA,Total (Free>4and<10) 2.65 ng/mL (0.00-4.00)
[2023-01-29 13:58] LABS: Testosterone, Free 60.6 pg/mL (35.0-155.0); Testosterone, Total 439 ng/dL (250-1100)
== END 2023-01-21 07:34 | disposition home or self-care (01) ==
LOC: HO.10HDL 07:33
PROVIDERS: Visit Provider Nurse Practitioner Family
DX: E29.1 Testicular hypofunction (principal); N32.0 Bladder-neck obstruction; Z12.5 Encounter for screening for malignant neoplasm of prostate
CPT/HCPCS: 36415; 84153; 84402; 84403; 85014; 85018

== ENCOUNTER 2023-03-01 08:21 | Outpatient (REF) | payer MEDICARE, MEDICAID, SELFPAY ==
--- NOTE | ~2023-03-01 | US_ITS ---
EXAMINATION: US RETROPERITONEAL COMPLETE (RENAL) CLINICAL INFORMATION: Nocturia. COMPARISON: US pelvis limited (bladder) 08/27/2021. CT abdomen and pelvis with contrast 10/30/2014. TECHNIQUE: Real-time imaging of the kidneys and bladder. FINDINGS: RIGHT KIDNEY: 12.2 x 5.2 x 7.2 cm (SAG x AP x TRV). The kidney is normal in size, contour, and echogenicity. Renal cortical thickness is normal. No calculi or focal parenchymal lesions. No hydronephrosis. LEFT KIDNEY: 13.5 x 4.6 x 5.9 cm (SAG x AP x TRV). The kidney is normal in size, contour, and echogenicity. Renal cortical thickness is normal. No calculi or focal parenchymal lesions. No hydronephrosis. BLADDER: Well distended. Left ureterocele measuring 9 x 9 x 12 mm. This is similar to prior exam. Bilateral ureteral jets are demonstrated. Prevoid bladder volume is 180 mL. Postvoid bladder volume is 22 mL. ADDITIONAL FINDINGS: The prostate gland is enlarged and measures 5.7 x 4.8 x 4.4 cm, volume 63 mL. US/US retroperitoneal comp IMPRESSION: Normal renal ultrasound. Stable left ureterocele. Enlarged prostate gland. Normal kidneys. Small left ureterocele similar to previous exam. Enlarged prostate gland. 22 mL post void bladder residual.
== END 2023-03-01 08:22 | disposition home or self-care (01) ==
LOC: HO.HMGCX 08:21
PROVIDERS: PCP Internal Medicine; Visit Provider Nurse Practitioner Family
DX: R35.1 Nocturia (principal); N32.0 Bladder-neck obstruction
CPT/HCPCS: 76770

== ENCOUNTER 2023-03-01 09:09 | Outpatient (AMB) | payer MEDICARE, MEDICAID, SELFPAY ==
--- NOTE | 2023-03-01 10:17 | MHC.OFFWIV ---
Intake Vital Signs 03/01/23 10:20 Height 5 ft 11 in BP 146/80 H Blood Pressure Location Rt brachial Position Sitting Pulse 70 Pulse Source Pulse Oximeter Temp 98.0 F Temp Source Oral Pulse Oximetry (%) 93 Oxygen Delivery Method Room Air Intake Visit Reasons: EP LT wrist sore (lobby) Intake Note: pt is here for left wrist is sore, infected wound. also has concerns about side of face Patient Tobacco Use Status: Never used Tobacco Allergies ciprofloxacin [Cipro] Allergy (Unknown, Verified 03/01/23 10:19) had itchness once been on since lactose [Lactose] Adverse Reaction (Mild, Verified 03/01/23 10:19) DIARRHEA Do you need a note to return to daycare/school/sports/work: Yes HPI EP LT wrist sore (lobby) HPI Details 62-year-old male presents to the office for a sick visit. Patient has a swelling on the left side of the wrist. Swelling is painful and warm to touch. Symptoms came or in the last 2 days. 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 [facility]LY [facility] Medical History Chest tightness Obstructive sleep apnea Restrictive lung disease Surgical History History of surgery Social History Alcohol intake: current Alcohol intake frequency: holidays/special occasions only Patient Tobacco Use Status: Never used Tobacco Physical Exam Vital Signs: Last Vital Signs Temp 98.0 F 03/01/23 10:20 Pulse 70 03/01/23 10:20 BP 146/80 H 03/01/23 10:20 Pulse Ox 93 03/01/23 10:20 Oxygen Delivery Method Room Air 03/01/23 10:20 Extrem Other: Left wrist: Lateral side: To cm erythematous area with central hyperemia. Tender to touch. Assessment & Plan Assessment & Plan (1) Cellulitis of left wrist: Code(s): L03.114 - Cellulitis of left upper limb Plan: Antibiotics called in. Keep and elevated. If symptoms do not improve to follow-up here. Coding Level of Care Code Est Pt Level 3 (95110) Diagnoses Cellulitis of left wrist L03.114
[2023-03-01 10:20] VITALS: BP 146/80; PULSE 70; TEMP 36.7; O2SAT 93
== END 2023-03-01 10:57 | disposition home or self-care (01) ==
PROVIDERS: PCP Internal Medicine; Visit Provider Internal Medicine
DX: L03.114 Cellulitis of left upper limb (principal)
CPT/HCPCS: 99213

== ENCOUNTER 2023-03-12 09:30 | Outpatient (AMB) | payer MEDICARE, MEDICAID, SELFPAY ==
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
== END 2023-03-12 10:32 | disposition home or self-care (01) ==
PROVIDERS: Visit Provider Nurse Practitioner Family
DX: N40.0 Benign prostatic hyperplasia without lower urinary tract symptoms (principal); E29.1 Testicular hypofunction; R35.1 Nocturia; R39.14 Feeling of incomplete bladder emptying
CPT/HCPCS: 99214

== ENCOUNTER → 2023-03-12 09:30 | Outpatient (BNVA) | payer MEDICARE, MEDICAID, SELFPAY | PROVIDERS: Visit Provider Nurse Practitioner Family | DX: E29.1 Testicular hypofunction (principal); N40.1 Benign prostatic hyperplasia with lower urinary tract symptoms; N13.8 Other obstructive and reflux uropathy; R39.14 Feeling of incomplete bladder emptying; R33.8 Other retention of urine; R35.1 Nocturia | CPT/HCPCS: 51798; 99212 ==

== ENCOUNTER 2023-08-27 08:06 | Outpatient (REF) | payer MEDICARE, SELFPAY ==
[2023-08-27 10:37] LABS: Hematocrit 46.5 % (42.0-52.0); Hemoglobin 15.5 g/dl (14.0-18.0); Mean Corpuscular HGB Conc 33.3 g/dl (31.0-36.0); Mean Corpuscular Hemoglobin 30.7 pg (27.0-33.0); Mean Corpuscular Volume 92.1 fL (80.0-98.0); Platelet Count 233 X10*3/uL (160-400); Red Blood Count 5.05 X10*6/uL (4.60-5.80); Red Cell Distribution Width 12.4 % (11.0-16.0)
[2023-08-27 11:19] LABS: Prostate Specific Antigen 3.32 ng/mL (<0.05-4.0)
[2023-09-03 15:48] LABS: Testosterone, Free 148.3 pg/mL (35.0-155.0); Testosterone, Total 693 ng/dL (250-1100)
== END 2023-08-27 08:07 | disposition home or self-care (01) ==
LOC: HO.10HDL 08:06
PROVIDERS: Visit Provider Nurse Practitioner Family
DX: E29.1 Testicular hypofunction (principal); N40.0 Benign prostatic hyperplasia without lower urinary tract symptoms; Z12.5 Encounter for screening for malignant neoplasm of prostate
CPT/HCPCS: 36415; 84153; 84402; 84403; 85027

== ENCOUNTER → 2023-09-10 08:26 | Outpatient (BNVA) | payer MEDICARE, OTHER, SELFPAY | PROVIDERS: PCP Internal Medicine; Visit Provider Nurse Practitioner Family | DX: N40.1 Benign prostatic hyperplasia with lower urinary tract symptoms (principal); R35.1 Nocturia; R39.14 Feeling of incomplete bladder emptying; E29.1 Testicular hypofunction; Z79.899 Other long term (current) drug therapy | CPT/HCPCS: 51798; 81003; 99212 ==

== ENCOUNTER 2024-01-20 10:18 | Outpatient (AMB) | payer MEDICARE, SELFPAY ==
[2024-01-20 10:20] VITALS: BP 140/80; PULSE 91; TEMP 36.6; O2SAT 95; BMI 36.8
--- NOTE | 2024-01-20 10:20 | AM.OFFWIN_ITS ---
Intake Vital Signs 01/20/24 10:20 Height 5 ft 11 in Weight 264 lb BMI 36.8 BP 140/80 H Blood Pressure Location Lt brachial Position Sitting Pulse 91 Pulse Source Pulse Oximeter Temp 97.8 F Temp Source Temporal Artery Scan Pulse Oximetry (%) 95 Oxygen Delivery Method Room Air Intake Visit Reasons: EP ?[place] [place] Intake Note: pt is here today for pink eye started yesterday Patient Tobacco Use Status: Never used Tobacco Allergies ciprofloxacin [Cipro] Allergy (Unknown, Verified 01/20/24 10:26) had itchness once been on since lactose [Lactose] Adverse Reaction (Mild, Verified 01/20/24 10:26) DIARRHEA Do you need a note to return to daycare/school/sports/work: No HPI HPI Comments History of Present Illness Details 63 y/o male patient who presents to walk in clinic with c/o PFSH Medical History Restrictive lung disease Obstructive sleep apnea Chest tightness Surgical History History of surgery Social History Alcohol intake: current Alcohol intake frequency: holidays/special occasions only Patient Tobacco Use Status: Never used Tobacco Physical Exam Vital Signs: Last Vital Signs Temp 97.8 F 01/20/24 10:20 Pulse 91 01/20/24 10:20 BP 140/80 H 01/20/24 10:20 Pulse Ox 95 01/20/24 10:20 Oxygen Delivery Method Room Air 01/20/24 10:20 BMI result Body Mass Index 36.8 Eyes Eyelids: Yes eyelids normal Conjunctivae: conjunctival abnormal right conjunctival injection and discharge Corneas: corneas normal Pupils: Equal, round and reactive pupils present EOM: EOMs intact bilaterally Neuro Cranial nerves: Yes Equal, round and reactive pupils present Assessment & Plan Assessment & Plan (1) Bacterial conjunctivitis: Code(s): H10.9 - Unspecified conjunctivitis Plan: - Maintain a good Eye Hygiene - Use medication as prescribed. - RTC if not better. Medications: New erythromycin 1 appl ophthalmic-Right DAILY 3.5 grams 0RF H10.9 - Unspecified conjunctivitis Coding Level of Care Code Est Pt Level 3 (71940) Diagnoses Bacterial conjunctivitis H10.9 Time Spent (min) 15
== END 2024-01-20 11:14 | disposition home or self-care (01) ==
PROVIDERS: PCP Internal Medicine; Visit Provider Nurse Practitioner Family
DX: H10.9 Unspecified conjunctivitis (principal)
CPT/HCPCS: 99213

== ENCOUNTER 2024-02-24 08:08 | Outpatient (REF) | payer MEDICARE, SELFPAY ==
[2024-02-24 10:56] LABS: Hematocrit 46.4 % (42.0-52.0); Hemoglobin 15.6 g/dl (14.0-18.0); Mean Corpuscular HGB Conc 33.6 g/dl (31.0-36.0); Mean Corpuscular Hemoglobin 31.3 pg (27.0-33.0); Mean Corpuscular Volume 93.2 fL (80.0-98.0); Mean Platelet Volume 10.2 fL (9.4-12.4); Platelet Count 230 X10*3/uL (160-400); Red Blood Count 4.98 X10*6/uL (4.60-5.80); Red Cell Distribution Width 12.7 % (11.0-16.0); White Blood Count 7.1 X10*3/uL (4.8-10.8)
[2024-02-24 11:43] LABS: PSA,Total (Free>4and<10) 4.12 ng/mL (0.00-4.00)
[2024-02-28 11:03] LABS: Free Prostate Spec Ag 0.9 ng/mL; Percent Free Prostate Spec Ag 23 % (calc) (>25)
[2024-02-28 19:14] LABS: Testosterone, Free 84.7 pg/mL (35.0-155.0); Testosterone, Total 484 ng/dL (250-1100)
== END 2024-02-24 08:09 | disposition home or self-care (01) ==
LOC: HO.10HDL 08:08
PROVIDERS: Visit Provider Nurse Practitioner Family
DX: E29.1 Testicular hypofunction (principal); Z12.5 Encounter for screening for malignant neoplasm of prostate
CPT/HCPCS: 36415; 84153; 84154; 84402; 84403; 85027

== ENCOUNTER 2024-03-10 08:22 | Outpatient (AMB) | payer MEDICARE, SELFPAY ==
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
== END 2024-03-10 09:12 | disposition home or self-care (01) ==
PROVIDERS: PCP Internal Medicine; Visit Provider Nurse Practitioner Family
DX: N40.0 Benign prostatic hyperplasia without lower urinary tract symptoms (principal); R39.14 Feeling of incomplete bladder emptying; E29.1 Testicular hypofunction; N32.0 Bladder-neck obstruction; Z13.9 Encounter for screening, unspecified
CPT/HCPCS: 99214; G2211

== ENCOUNTER → 2024-03-10 08:22 | Outpatient (BNVA) | payer MEDICARE, SELFPAY | PROVIDERS: PCP Internal Medicine; Visit Provider Nurse Practitioner Family | DX: N40.0 Benign prostatic hyperplasia without lower urinary tract symptoms (principal); R39.14 Feeling of incomplete bladder emptying; E29.1 Testicular hypofunction; N32.0 Bladder-neck obstruction | CPT/HCPCS: 51798; 81003; 99212 ==

== ENCOUNTER 2024-07-05 11:47 | Outpatient (REF) | payer MEDICARE, SELFPAY | END 2024-07-05 11:48 | disposition home or self-care (01) | LOC: HO.HMGCX 11:47 | PROVIDERS: PCP Internal Medicine; Visit Provider Internal Medicine | DX: M25.552 Pain in left hip (principal) | CPT/HCPCS: 73502 ==

== ENCOUNTER 2024-08-21 08:02 | Outpatient (REF) | payer MEDICARE, SELFPAY ==
[2024-08-21 10:28] LABS: Hematocrit 46.9 % (42.0-52.0); Hemoglobin 15.8 g/dl (14.0-18.0); Mean Corpuscular HGB Conc 33.7 g/dl (31.0-36.0); Mean Corpuscular Hemoglobin 31.6 pg (27.0-33.0); Mean Corpuscular Volume 93.8 fL (80.0-98.0); Mean Platelet Volume 9.8 fL (9.4-12.4); Platelet Count 211 X10*3/uL (160-400); Red Cell Distribution Width 12.6 % (11.0-16.0); White Blood Count 7.8 X10*3/uL (4.8-10.8)
[2024-08-21 11:56] LABS: PSA,Total (Free>4and<10) 4.55 ng/mL (0.00-4.00)
[2024-08-22 10:49] LABS: Free Prostate Spec Ag 1.2 ng/mL; Percent Free Prostate Spec Ag 27 % (calc) (>25); Prostate Specific Ag Total 4.5 ng/mL (< OR = 4.0)
[2024-08-26 16:54] LABS: Testosterone, Free 172.2 pg/mL (35.0-155.0); Testosterone, Total 861 ng/dL (250-1100)
== END 2024-08-21 08:03 | disposition home or self-care (01) ==
LOC: HO.10HDL 08:02
PROVIDERS: Visit Provider Nurse Practitioner Family
DX: N40.0 Benign prostatic hyperplasia without lower urinary tract symptoms (principal); E29.1 Testicular hypofunction; R39.14 Feeling of incomplete bladder emptying; Z12.5 Encounter for screening for malignant neoplasm of prostate
CPT/HCPCS: 36415; 84153; 84154; 84402; 84403; 85027

== ENCOUNTER 2024-09-04 10:35 | Outpatient (AMB) | payer MEDICARE, SELFPAY ==
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
== END 2024-09-04 11:05 | disposition home or self-care (01) ==
PROVIDERS: PCP Internal Medicine; Visit Provider Nurse Practitioner Family
DX: E29.1 Testicular hypofunction (principal); N40.0 Benign prostatic hyperplasia without lower urinary tract symptoms; Z13.9 Encounter for screening, unspecified
CPT/HCPCS: 99213; G2211

== ENCOUNTER → 2024-09-04 10:35 | Outpatient (BNVA) | payer MEDICARE, SELFPAY | PROVIDERS: PCP Internal Medicine; Visit Provider Nurse Practitioner Family | DX: E29.1 Testicular hypofunction (principal); N40.1 Benign prostatic hyperplasia with lower urinary tract symptoms; R35.0 Frequency of micturition | CPT/HCPCS: 81003; 99212 ==

== ENCOUNTER 2024-11-22 08:02 | Outpatient (REF) | payer MEDICARE, MEDICAID, SELFPAY ==
--- OUTSIDE RECORDS SUMMARY | 2024-11-22 08:07 | XMS_ITS | Clinical Summary ---
Author Organization [employer] Address [address] [facility] [address] [place] [address] Care Team Providers Care Applications Engineer Name Role Phone Unavailable Primary Care Provider Unavailabl e Allergies No known active allergies Medications testosterone (Androgel) 50 MG/5GM (1%) gel APPLY 2 PACKETS TRANSDERMALL EVERY MORNING. APPLY AND RUB UNTIL DRY 3 Active tamsulosin (Flomax) 0.4 MG 24 hr capsule Take 0.4 mg by mouth at bedtime. 2 Active naproxen (Naprosyn) 500 MG tablet Take 500 mg by mouth with breakfast and with evening meal. 3 Active levoFLOXacin (Levaquin) 500 MG tablet Take 1 tablet by mouth in the morning. 3 Active cephalexin (Keflex) 500 MG capsule TAKE 1 CAPSULE BY MOUTH FOUR TIMES DAILY FOR 7 DOSES 2 Active Immunizations Name Administration Dates Next Due INFLUENZA INJECTABLE QUADRIV ALANT CCIIV4 MDCK Multi-dose vial 04/25/2020 Influenza Injectable Quadriv alant Preservative Free IIV4 MDCK 07/08/2022 Influenza injectable quadriv alent IIV4 with preservative 04/10/2021,05/26/2019 Influenza injectable quadrivalent preservative f ree 03/18/2017 Influenza, IIV3, injectable 05/19/2016 Influenza, seasonal, injectable, preservative fr ee 06/17/2015 Pneumococcal Polysaccharide PPSV23 06/17/2015 Tdap 07/08/2022,10/19/2016 Zoster, Recombinant 08/11/2021 Social History Tobacco Use Types Packs/Day Years Used Date Smoking Tobacco: Never Assessed Sex and Gender Information Value Date Recorded Sex Assigned at Male 09/23/2022 8:50 AM EST Legal Sex Male 8:44 AM EST Gender Identity Male 09/23/2022 8:50 AM EST Sexual Orientation Choose not to disclose 2022 8:50 AM EST Last Filed Vital Signs Vital Sign Reading Time Taken Comments Blood Pressure 138/70 09/29/2022 11:02 AM EST Pulse 84 09/29/2022 11:02 AM EST Temperature - - Respiratory Rate - - Oxygen Saturation - - Inhaled Oxygen Concentration - - Weight - - Height - - Body Mass Index - - Plan of Treatment Health Maintenance Due Date Last Done Comments CT Colonography 1958 Colonoscopy 1958 Colorectal Cancer Screening 1958 Dental Oral Exam 1958 Dental Prophylaxis 1958 Dental X-Ray: Full Mouth 1958 Depression Screening 1958 FIT DNA/Cologuard 1958 FIT 1958 FOBT 1958 Lipid Panel 1958 SDOH Screening 1958 Sigmoidoscopy 1958 Alcohol/Substance Use Screening 1970 Tobacco Screening 1970 Hepatitis C Screening 1976 Pneumococcal Vaccine: 50+ Years (2 of 2 - PCV) 06/17/2016 06/17/2015 Zoster Vaccines (2 of 2) 10/06/2021 08/11/2021 Dental X-Ray: Bitewings 09/24/2023 09/23/2022 COVID-19 Vaccine ( season) 2024 07/16/2021, 12/04/2020, 11/04/2020 Influenza Vaccine (#1) 2024 2, 04/10/2021, 04/25/2020, Additional history exists DTaP/Tdap/Td Vaccines (3 - Td or Tdap) 07/08/2032 07/08/2022, 10/19/2016 RSV Patients and Patients Aged 60 years or older (1 - 1-dose 75+ series) 2033 HIB Vaccines Aged Out No longer eligi ble based on patient's age to complete this topic HPV Vaccines Aged Out No longer eligi ble based on patient's age to complete this topic Hepatitis A Vaccines Aged Out No long er eligible based on patient's age to complete this topic Hepatitis B Vaccines Aged Out No long er eligible based on patient's age to complete this topic IPV Vaccines Aged Out No longer eligi ble based on patient's age to complete this topic Meningococcal Vaccine Aged Out No jenn marino eligible based on patient's age to complete this topic RSV under 20 months Aged Out No longe r eligible based on patient's age to complete this topic Rotavirus Vaccines Aged Out No longer eligible based on patient's age to complete this topic Procedures Procedure Name Priority Date/Time Associated Diagnosis Comments BITEWING - SINGLE RADIOGRAPHIC IMAGE Routine 09/23/2022 11:00 AM EST Acute pulpitis Dental caries from Last 3 Months or Most Recently Relevant to Health Maintenance Insurance DENTAL-[facility] MEDICAID STAND ADULT
--- OUTSIDE RECORDS SUMMARY | 2024-11-22 08:07 | XMS_ITS | Encounter Summary ---
Author Organization [employer] Address [address] [facility] [address] [place] [address] Care Team Providers Care Cryptographic Technician Name Role Phone Unavailable Primary Care Provider Unavailabl e Encounter Details Date Type Department Care Team (Late st Contact Info) Description 10/16/2022 Abstract [facility] [address] [place] [address] Cherelle Geller DDS [address] [place] [address] Social History Tobacco Use Types Packs/Day Years Used Date Smoking Tobacco: Never Assessed Sex and Gender Information Value Date Recorded Sex Assigned at Male 09/23/2022 8:50 AM EST Legal Sex Male 8:44 AM EST Gender Identity Male 09/23/2022 8:50 AM EST Sexual Orientation Choose not to disclose 2022 8:50 AM EST COVID-19 Exposure Response Date Recorded In the last 10 days, have yo u been in contact with someone who was confirmed or suspected to have Coronavirus/COVID-19? No / Unsure 09/29/2022 10:56 AM EST documented as of this encounter Plan of Treatment Not on file documented as of this encounter Visit Diagnoses Not on filedocumented in this encounter
[2024-11-22 09:58] LABS: Hematocrit 45.7 % (42.0-52.0); Hemoglobin 15.1 g/dl (14.0-18.0); Mean Corpuscular Hemoglobin 30.5 pg (27.0-33.0); Mean Corpuscular Volume 92.3 fL (80.0-98.0); Mean Platelet Volume 10.9 fL (9.4-12.4); Platelet Count 220 X10*3/uL (160-400); Red Blood Count 4.95 X10*6/uL (4.60-5.80); White Blood Count 7.7 X10*3/uL (4.8-10.8)
[2024-11-22 10:40] LABS: PSA,Total (Free>4and<10) 4.06 ng/mL (0.00-4.00)
[2024-11-23 10:38] LABS: Free Prostate Spec Ag 0.9 ng/mL; Percent Free Prostate Spec Ag 23 % (calc) (>25)
[2024-11-29 18:28] LABS: Testosterone, Free 111.4 pg/mL (35.0-155.0); Testosterone, Total 607 ng/dL (250-1100)
== END 2024-11-22 08:03 | disposition home or self-care (01) ==
LOC: HO.10HDL 08:02
PROVIDERS: Visit Provider Nurse Practitioner Family
DX: Z12.5 Encounter for screening for malignant neoplasm of prostate (principal); N40.0 Benign prostatic hyperplasia without lower urinary tract symptoms; E29.1 Testicular hypofunction
CPT/HCPCS: 36415; 84153; 84154; 84402; 84403; 85027

== ENCOUNTER 2024-12-05 10:41 | Outpatient (AMB) | payer MEDICARE, MEDICAID, SELFPAY ==
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
--- OUTSIDE RECORDS SUMMARY | 2024-12-05 12:43 | XMS_ITS | Encounter Summary ---
Author Organization [employer] Address [address] [facility] [address] [place] [address] Care Team Providers Care Hogshead Stripper Name Role Phone Unavailable Primary Care Provider Unavailabl e Encounter Details Date Type Department Care Team (Late st Contact Info) Description 10/16/2022 Abstract [facility] [address] [place] [address] Cherelle Geller DDS [address] [place] [address] Social History Tobacco Use Types Packs/Day Years [...]
--- OUTSIDE RECORDS SUMMARY | 2024-12-05 12:43 | XMS_ITS | Clinical Summary ---
Author Organization [employer] Address [address] [facility] [address] [place] [address] Care Team Providers Care Catalytic Converter Operator Name Role Phone Unavailable Primary Care Provider [...] Most Recently Relevant to Health Maintenance Insurance [facility] MEDICAID STAND ADULT
== END 2024-12-05 12:11 | disposition home or self-care (01) ==
LOC: HO.HUSH 10:41
PROVIDERS: PCP Internal Medicine; Visit Provider Nurse Practitioner Family
DX: E29.1 Testicular hypofunction (principal); Z13.9 Encounter for screening, unspecified
CPT/HCPCS: 99214; G2211

== ENCOUNTER → 2024-12-05 10:41 | Outpatient (BNVA) | payer MEDICARE, MEDICAID, SELFPAY | PROVIDERS: PCP Internal Medicine; Visit Provider Nurse Practitioner Family | DX: N40.1 Benign prostatic hyperplasia with lower urinary tract symptoms (principal); R39.14 Feeling of incomplete bladder emptying; E29.1 Testicular hypofunction | CPT/HCPCS: 51798; 81003; 99212 ==

== ENCOUNTER 2025-02-01 09:01 | Outpatient (REF) | payer MEDICARE, MEDICAID, SELFPAY ==
--- NOTE | ~2025-02-01 | XR_ITS ---
CLINICAL HISTORY: Bilateral knee pain 3 view bilateral knee Comparison: None provided Findings: Bones intact. No dislocations. There are severe osteoarthritic changes with marked medial joint space narrowing bilaterally. No joint effusion. No radiopaque foreign body. Synovial osteochondromas popliteal fossa bilaterally. IMPRESSION: 1. There are severe osteoarthritic changes with marked medial joint space narrowing bilaterally. 2. Synovial osteochondromas popliteal fossa bilaterally. This document has been electronically signed by: Vahid Martinez MD on 02/02/2025 10:45:26
--- OUTSIDE RECORDS SUMMARY | 2025-02-02 09:10 | XMS_ITS | Encounter Summary ---
Author Organization [employer] Address [address] [facility] [address] [place] [address] Care Team Providers Care Harness Cutter Name Role Phone Unavailable Primary Care Provider Unavailabl e Encounter Details Date Type Department Care Team (Late st Contact Info) Description 10/16/2022 Abstract [facility] [address] [place] [address] Cherelle Geller DDS [address] [place] [address] Social History Tobacco Use Types Packs/Day Years [...]
== END 2025-02-01 09:02 | disposition home or self-care (01) ==
LOC: HO.HOSX 09:01
PROVIDERS: Visit Provider Orthopaedic Surgery
DX: M25.562 Pain in left knee (principal); M25.561 Pain in right knee; M17.12 Unilateral primary osteoarthritis, left knee; M17.11 Unilateral primary osteoarthritis, right knee
CPT/HCPCS: 73562; 99202

== ENCOUNTER 2025-02-01 09:37 | Outpatient (AMB) | payer MEDICAID, SELFPAY ==
[2025-02-01 09:40] VITALS: BMI 36.8
--- NOTE | 2025-02-01 09:40 | A.OFFVIS_ITS ---
Vital Signs 02/01/25 09:40 Height 5 ft 11 in Weight 264 lb BMI 36.8 Intake Visit Reasons: Bilateral knee pain Intake Note: Leon is a 64 year old male who presents with complaints of progressively worsening bilateral knee pains. The patient describes his pains as sharp and severe in nature. His pains have gotten worse over the last 5 years in spite of continued non operative treatments. He has failed the last 3 months of conservative treatment which has included physical therapy exercises, a home exercise program, Tylenol and anti-inflammatory medicines. At this point his bilateral knee pains are interfering with his activities of daily living and his ability to sleep well through the night. The patient has had cortisone injections in the past. The most recent cortisone injection gave him no relief. He wishes to hold off on total knee replacement surgery for as long as possible. Allergies ciprofloxacin (Cipro) Allergy (Unknown, Verified 02/01/25 09:40) had itchness once been on since lactose (Lactose) Adverse Reaction (Mild, Verified 02/01/25 09:40) DIARRHEA Medication List - Last Reconciled 02/01/25 by Juan Romero MD albuterol sulfate 90 mcg/actuation 2 puffs inhalation QID PRN aspirin (Adult Low Dose Aspirin) 81 mg PO DAILY budesonide-formoterol 160-4.5 mcg/actuation 1 puff inhalation BID fluticasone furoate-vilanterol 50-25 mcg/dose (Breo Ellipta) 1 ea inhalation DAILY insulin syringe-needle U-100 (BD Insulin Syringe) As directed losartan 50 mg PO DAILY naproxen 500 mg PO BID syringe with needle (UltiCare) DIRECTED, once weekly for testosterone injection terazosin 10 mg (2 x 5 mg) PO BEDTIME 90 days testosterone cypionate (Depo-Testosterone) 80 mg (0.4 mL) subcut QWEEK 4 weeks [facility] Medical History Restrictive lung disease Obstructive sleep apnea Chest tightness Surgical History History of surgery Social History Alcohol intake: current Alcohol intake frequency: holidays/special occasions only Patient Tobacco Use Status: Never used Tobacco Physical Exam Vital Signs: BMI result Body Mass Index 36.8 Const Other: Well-nourished well-developed very friendly male awake alert and oriented x3 in no acute distress Extrem Other: Bilateral lower extremity examination shows good capillary refill, no skin lesions noted, normal sensation light touch Bilateral knee examination shows minimal effusions, palpable crepitus with range of motion, pain with range of motion, range of motion from -3 degrees to 115 degrees, no instability Results Reviewed Results Reviewed: X-rays of the patient's bilateral knee show joint space narrowing, subchondral sclerosis, no acute bony abnormalities Assessment & Plan Assessment & Plan (1) Bilateral knee pain: Code(s): M25.561 - Pain in right knee; M25.562 - Pain in left knee Category: Medical (2) Osteoarthritis of left knee: Code(s): M17.12 - Unilateral primary osteoarthritis, left knee Category: Medical (3) Osteoarthritis of right knee: Code(s): M17.11 - Unilateral primary osteoarthritis, right knee Category: Medical Plan Mr. Norman presents with bilateral knee pains due to osteoarthritis. I had a lengthy discussion with the patient regarding the treatment options. He wishes to hold off on total knee replacement surgery for as long as possible. I agree with this plan. I will see whether or not the patient's insurance company will cover a viscosupplementation injection, such as Durolane, for both of his knees. I will see him back once the injections are available. Feel free to call me at any time should questions regarding his orthopedic management arise. Thank you very much for asking me to see this very friendly gentleman. I spent 22 minutes in reviewing the patient's records and imaging studies, seeing the patient and documenting in the medical record. Orders: Orders XR Knee Scooby 3V Today M25.561 - Pain in right knee, M25.562 - Pain in left knee Coding Level of Care Code New Pt Level 3 (21632) Complex EM visit Add On G2211 Diagnoses Bilateral knee pain M25.561; M25.562 Osteoarthritis of left knee M17.12 Osteoarthritis of right knee M17.11
--- OUTSIDE RECORDS SUMMARY | 2025-02-01 10:32 | XMS_ITS | Encounter Summary ---
Author Organization [employer] Address [address] [facility] [address] [place] [address] Care Team Providers Care Boat Builder Name Role Phone Unavailable Primary Care Provider Unavailabl e Encounter Details Date Type Department Care Team (Late st Contact Info) Description 10/16/2022 Abstract [facility] [address] [place] [address] Cherelle Geller DDS [address] [place] [address] Social History Tobacco Use Types Packs/Day Years [...]
== END 2025-02-01 10:07 | disposition home or self-care (01) ==
LOC: HO.HOS 09:38
PROVIDERS: PCP Internal Medicine; Visit Provider Orthopaedic Surgery
DX: M25.561 Pain in right knee (principal); M25.562 Pain in left knee; M17.0 Bilateral primary osteoarthritis of knee
CPT/HCPCS: 99203

== ENCOUNTER 2025-02-19 11:26 | Outpatient (AMB) | payer MEDICARE, MEDICAID, SELFPAY ==
--- NOTE | 2025-02-19 11:26 | A.OFFPC_ITS ---
Vital Signs 02/19/25 11:33 Height 5 ft 8.27 in Weight 249 lb 8 oz BMI 37.6 BP 136/74 Blood Pressure Location Rt brachial Position Sitting Respiration 16 Pulse 71 Pulse Source Pulse Oximeter Temp 97.8 F Temp Source Temporal Artery Scan Pulse Oximetry (%) 95 Oxygen Delivery Method Room Air Intake Visit Reasons: Establish Care Clinical Audiologist Required: No Accompanied by: Self / Same As Patient Allergies ciprofloxacin (Cipro) Allergy (Unknown, Verified 02/19/25 12:22) had itchness once been on since lactose (Lactose) Adverse Reaction (Mild, Verified 02/19/25 12:22) DIARRHEA Medication List - Last Reconciled 02/19/25 by Alexa Moyer PA-C albuterol sulfate 90 mcg/actuation 2 puffs inhalation QID PRN aspirin (Adult Low Dose Aspirin) 81 mg PO DAILY docusate sodium 100 mg PO DAILY fexofenadine (Allergy Relief (fexofenadine)) 180 mg PO DAILY fluticasone furoate-vilanterol 50-25 mcg/dose (Breo Ellipta) 1 ea inhalation DAILY losartan 50 mg PO DAILY naproxen 500 mg PO BID oxymetazoline 0.05% (Afrin (oxymetazoline)) 2 sprays intranasal Q12H PRN syringe with needle (UltiCare) DIRECTED, once weekly for testosterone injection terazosin 10 mg (2 x 5 mg) PO BEDTIME 90 days testosterone cypionate (Depo-Testosterone) 80 mg (0.4 mL) subcut QWEEK 4 weeks Tobacco use date assessed: 02/19/25 Fall risk assessment: No Falls in past year Last assessed Fall Risk: 02/19/25 Dental Screening Dental Screen Date: 02/19/25 Did you have a dental visit in the last 12 months?: Yes Did you have a dental problem in the last 6 months where you did not have access to dental care?: No Was dental information given to patient?: Patient has dentist HPI Establish Care HPI Details The patient is a 64-year-old male presenting with the need to establish care with a new primary care provider. The patient has a history of Chronic Obstructive Pulmonary Disease (COPD) attributed to chemical exposure approximately ten years ago, which resulted in a significant reduction in lung capacity to 42%. He uses Breo Ellipta daily, which has been effective in managing his symptoms, and albuterol is used sparingly, primarily during high humidity conditions. The patient reports elevated PSA levels, with a recent measurement of 4.1, down from a previous level of 6.41. He is under the care of a urologist who is monitoring this condition. The patient has severe osteoarthritis with marked medial joint space narrowing and is scheduled to receive gel injections for management. The patient underwent cataract surgery, which significantly improved his vision, particularly in the left eye, which was previously blind. 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 Mother No problems noted. Social History Housing: House Alcohol intake: current Alcohol intake frequency: holidays/special occasions only Patient Tobacco Use Status: Former Tobacco user service: No Current occupational status: retired and disabled Cognitive needs: Yes (cane) Hearing needs: No Vision needs: Yes (reading glasses) Questionnaire PHQ-9 Over the last 2 weeks, how often have you been bothered by any of the following problems? 1. Little interest or pleasure in doing things: not at all 2. Feeling down, depressed, or hopeless: not at all 3. Trouble falling or staying asleep, or sleeping too much: not at all 4. Feeling tired or having little energy: not at all 5. Poor appetite or overeating: not at all 6. Feeling bad about yourself - or that you are a failure or have let yourself or your family down: not at all 7. Trouble concentrating on things, such as reading the newspaper or watching television: not at all 8. Moving or speaking so slowly that other people could have noticed. Or the opposite - being so fidgety or restless that you have been moving around a lot more than usual: not at all 9. Thoughts that you would be better off or of hurting yourself in some way: not at all Total score: 0 Depression Screening Interpretation: Negative Depression Screening Done: Yes 78285 - PHQ-9 Billing: Yes Source: Developed by Drs. Elvin Perdomo, Goldie Moore, Wes Cohen and colleagues, with an educational sindy from [employer]. Thrive Questionnaire Date Thrive assessed: 02/19/25 I am a: Patient What is your living situation today?: I have a steady place to live Within the past 12 months, did the food you bought not last and you didn't have the money to get more?: Never true Within the past 12 months, did you worry whether your food would run out before you got money to buy more?: Never true Do you have trouble paying for medicines?: No Do you have trouble getting transportation to medical appointments?: No Do you have trouble paying your heating and electricity bill?: No Do you have trouble taking care of your child, family member or friend?: No Do you have trouble with day-to-day activities such as bathing, preparing meals, shopping, managing finances, etc.?: No Are you currently unemployed and looking for a job?: No Are you interested in more education?: No Please select the resources that you would like help with: None Currently or been in a relationship where the following occur: No concerns reported THRIVE Score: 0 AUDIT C Alcohol Use Questionnaire (AUDIT-C) 1. How often do you have a drink containing alcohol?: Monthly or less 2. How many drinks containing alcohol do you have on a typical day when you are drinking?: 1 or 2 3. How often do you have six or more drinks on one occasion?: Never Total Score: 1 Score Reviewed/Action Taken: No CAT-7 AMB Questionnaire CAT-7 Date CAT - 7 assessed: 02/19/25 Feeling nervous, anxious, or on edge: 0 = Not at all Not being able to stop or control worryin = Not at all Worrying too much about different things: 0 = Not at all Trouble relaxin = Not at all Being so restless that it is hard to sit still: 0 = Not at all Becoming easily annoyed or irritable: 0 = Not at all Feeling afraid as if something awful might happen: 0 = Not at all Total CAT-7 score (0-4 normal; 5-9 mild; 10-14 moderate; 15-21 severe): 0 Source: Developed by Drs. Elvin Perdomo, Goldie Moore, Wes Cohen and colleagues, with an educational sindy from [employer]. CAT-7 Assessment Billing CAT-7 Assessment Tool: CAT-7 Assessment 67348 Review of Systems Const Details: - Respiratory: Reports dyspnea on exertion related to COPD. Denies cough. - Cardiovascular: Denies chest pain or orthopnea. - Gastrointestinal: Denies black or bloody stools. - Musculoskeletal: Reports knee pain due to osteoarthritis. Physical exam (Primary Care) Vital Signs: Last Vital Signs Temp 97.8 F 02/19/25 11:33 Pulse 71 02/19/25 11:33 Resp 16 02/19/25 11:33 BP 136/74 02/19/25 11:33 Pulse Ox 95 02/19/25 11:33 Oxygen Delivery Method Room Air 02/19/25 11:33 Care Plan Goal for BP management: <140/90 at Goal BMI result Body Mass Index 37.6 BMI Assessment/Plan discussion: High BMI High, discussed plan: lifestyle, weight reduction, dietary, physical activity and alcohol moderation Tobacco/Smoking Status: Tobacco use Status Tobacco use date assessed 02/19/25 02/19/25 11:32 Patient Tobacco Use Status Former Tobacco user 02/19/25 11:51 PHQ-9: PHQ-9 Score PHQ-9: Total score 0 02/19/25 11:32 Depression Screening Interpretation: Negative Thrive Assessment: Date of Thrive Assessment Date Thrive assessed 02/19/25 02/19/25 11:32 Currently or been in a relationship where the following occur: No concerns reported Const Other: Appearance: Alert. Oriented X3. No acute distress. Head: Normal external exam. Normocephalic. Atraumatic. Eyes: Pupils are equal, round, and reactive to light. Extraocular movements intact. Conjunctiva and sclera normal. Eyelids normal. Throat: Pharynx normal. Uvula midline. Moist mucous membranes. Neck: Normal inspection. Neck supple. Full range of motion. Cardiovascular: Normal heart rate and rhythm. Heart sound normal. No murmurs noted. Pulses normal throughout. Respiratory: No respiratory distress. Painless inspiration. Breath sounds normal. No wheezes/rales/rhonchi noted. Chest nontender. No accessory muscle usage noted or decreased air movement noted. Abdomen: Soft and nontender. Back: Full range of motion noted. Skin: Skin warm and dry. Normal skin color. Normal skin turgor. Extremities: No lower extremity edema. Extremities exhibit normal range of m otion. Neuro: Oriented X 3. No motor deficit. Results Reviewed Results Reviewed: - Labs: Elevated PSA level at 4.1, previously 6.41 - Imaging: Severe osteoarthritic changes with marked medial joint space narrowing Coding Level of Care Code New Pt Level 4 (00093) Complex EM visit Add On G2211 Diagnoses Establishing care with new doctor, encounter for Z76.89 Elevated PSA R97.20 Osteoarthritis M19.90 Cataract H26.9 Hypertension I10 Class 2 obesity with body mass index (BMI) of 37.0 to 37.9 in adult E66.812; Z68.37 Hypogonadism in male E29.1 COPD (chronic obstructive pulmonary disease) J44.9 Additional Codes PHQ-9 - 59002 - PHQ-9 Billing: Yes ([id number]) CAT-7 Assessment Billing - CAT-7 Assessment Tool: CAT-7 Assessment 30963 ([id number]) Time Spent (min) 40 Assessment & Plan Assessment & Plan (1) Establishing care with new doctor, encounter for: Code(s): Z76.89 - Persons encountering health services in other specified circumstances Category: Medical (2) Elevated PSA: Code(s): R97.20 - Elevated prostate specific antigen [PSA] Category: Medical Plan: The patient is under urologist care for elevated PSA levels, with recent levels showing improvement. Condition is chronic and stable continue to monitor. (3) Osteoarthritis: Code(s): M19.90 - Unspecified osteoarthritis, unspecified site Category: Medical Plan: The patient is scheduled for gel injections to manage severe osteoarthritis. Condition is chronic and stable will continue to monitor. (4) Cataract: Code(s): H26.9 - Unspecified cataract Category: Medical Plan: The patient has undergone cataract surgery, resulting in significant vision improvement. Condition is chronic and stable will continue to monitor. (5) Hypertension: Code(s): I10 - Essential (primary) hypertension Category: Medical Plan: Losartan refill today. Blood pressure at goal. Condition is chronic and stable will continue current regimen. (6) Class 2 obesity with body mass index (BMI) of 37.0 to 37.9 in adult: Code(s): E66.812 - Obesity, class 2; Z68.37 - Body mass index [BMI] 37.0-37.9, adult Category: Medical Plan: Patient to improve diet and exercise regimen. Condition is chronic and stable will continue to monitor. (7) Hypogonadism in male: Code(s): E29.1 - Testicular hypofunction Category: Medical Plan: The patient is under urologist care for elevated PSA levels, with recent levels showing improvement. Condition is chronic and stable will continue to monitor. (8) COPD (chronic obstructive pulmonary disease): Code(s): J44.9 - Chronic obstructive pulmonary disease, unspecified Category: Medical Plan: The patient will continue using Breo Ellipta daily for COPD management, with albuterol reserved for high humidity conditions. Condition is chronic and stable continue to monitor. Plan Plan Patient was informed and verbally consented to the use of an ambient scribe for clinic note documentation during this visit. 1. Chronic Obstructive Pulmonary Disease (Copd) The patient will continue using Breo Ellipta daily for COPD management, with albuterol reserved for high humidity conditions. 2. Elevated Psa Levels The patient is under urologist care for elevated PSA levels, with recent levels showing improvement. 3. Severe Osteoarthritis The patient is scheduled for gel injections to manage severe osteoarthritis. 4. Cataracts The patient has undergone cataract surgery, resulting in significant vision improvement. I discussed with the patient the continuation of Breo Ellipta for COPD management and the use of albuterol as needed during high humidity. We reviewed the improvement in PSA levels and the ongoing monitoring by the urologist. The patient is scheduled for gel injections for osteoarthritis, and we discussed the successful outcome of his cataract surgery. Medications: New losartan 50 mg PO DAILY 90 tabs 3RF Patient Instructions: - Continue using Breo Ellipta daily and albuterol as needed for COPD. - Follow up with your urologist regarding PSA levels. - Attend scheduled gel injection appointment for osteoarthritis management. - Monitor vision changes post-cataract surgery and report any concerns.
[2025-02-19 11:33] VITALS: BP 136/74; PULSE 71; RESP 16; TEMP 36.6; O2SAT 95; BMI 37.6
--- OUTSIDE RECORDS SUMMARY | 2025-02-19 12:22 | XMS_ITS | Encounter Summary ---
Author Organization [employer] Address [address] [place] [address] Care Team Providers Care Nurse Wound Name Role Phone Unavailable Primary Care Provider Unavailabl e Encounter Details Date Type Department Care Team (Late st Contact Info) Description 10/16/2022 Abstract [facility] [address] [place] [address] Cherelle Geller DDS [address] [place] [address] Social History Tobacco Use Types Packs/Day Years [...]
== END 2025-02-19 12:14 | disposition home or self-care (01) ==
LOC: HO.HMCSH 11:26
PROVIDERS: PCP Physician Assistant Medical; Visit Provider Physician Assistant Medical
DX: Z76.89 Persons encountering health services in other specified circumstances (principal); R97.20 Elevated prostate specific antigen [PSA]; M19.90 Unspecified osteoarthritis, unspecified site; H26.9 Unspecified cataract; I10 Essential (primary) hypertension; E66.812 Obesity, class 2; Z68.37 Body mass index [BMI] 37.0-37.9, adult; E29.1 Testicular hypofunction; J44.9 Chronic obstructive pulmonary disease, unspecified

== ENCOUNTER → 2025-02-19 11:26 | Outpatient (BNVA) | payer MEDICARE, MEDICAID, SELFPAY | PROVIDERS: PCP Physician Assistant Medical; Visit Provider Physician Assistant Medical | DX: Z76.89 Persons encountering health services in other specified circumstances (principal); R97.20 Elevated prostate specific antigen [PSA]; M19.90 Unspecified osteoarthritis, unspecified site; H26.9 Unspecified cataract; I10 Essential (primary) hypertension; E29.1 Testicular hypofunction; J44.9 Chronic obstructive pulmonary disease, unspecified; E66.812 Obesity, class 2; Z68.37 Body mass index [BMI] 37.0-37.9, adult; Z71.3 Dietary counseling and surveillance | CPT/HCPCS: 96127; 99202 ==

== ENCOUNTER 2025-03-06 07:48 | Outpatient (AMB) | payer MEDICARE, MEDICAID, SELFPAY ==
--- OUTSIDE RECORDS SUMMARY | 2025-03-06 07:51 | XMS_ITS | Encounter Summary ---
Author Organization [employer] Address [address] [facility] [address] [place] [address] Care Team Providers Care Signal Person Name Role Phone Unavailable Primary Care Provider Unavailabl e Encounter Details Date Type Department Care Team (Late st Contact Info) Description 10/16/2022 Abstract [facility] [address] [place] [address] Cherelle Geller DDS [address] [place] [address] Social History Tobacco Use Types Packs/Day Years [...]
--- NOTE | 2025-03-06 07:53 | MHC.OFFVIS ---
Vital Signs 03/06/25 08:03 Height 5 ft 8 in Weight 249 lb BMI 37.9 Intake Visit Reasons: INJ- B/L knee Durolane injection Intake Note: Leon is a 64 year old male who presents with complaints of progressively worsening bilateral knee pains. The patient describes his pains as sharp and severe in nature. His pains have gotten worse over the last 5 years in spite of continued non operative treatments. He has failed the last 3 months of conservative treatment which has included physical therapy exercises, a home exercise program, Tylenol and anti-inflammatory medicines. At this point his bilateral knee pains are interfering with his activities of daily living and his ability to sleep well through the night. The patient has had cortisone injections in the past. The most recent cortisone injection gave him no relief. He wishes to hold off on total knee replacement surgery for as long as possible. Allergies ciprofloxacin (Cipro) Allergy (Unknown, Verified 03/06/25 08:02) had itchness once been on since lactose (Lactose) Adverse Reaction (Mild, Verified 03/06/25 08:02) DIARRHEA Medication List - Last Reconciled 03/06/25 by Juan Romero MD albuterol sulfate 90 mcg/actuation 2 puffs inhalation QID PRN aspirin (Adult Low Dose Aspirin) 81 mg PO DAILY docusate sodium 100 mg PO DAILY fexofenadine (Allergy Relief (fexofenadine)) 180 mg PO DAILY fluticasone furoate-vilanterol 50-25 mcg/dose (Breo Ellipta) 1 ea inhalation DAILY losartan 50 mg PO DAILY naproxen 500 mg PO BID oxymetazoline 0.05% (Afrin (oxymetazoline)) 2 sprays intranasal Q12H PRN syringe with needle (UltiCare) DIRECTED, once weekly for testosterone injection terazosin 10 mg (2 x 5 mg) PO BEDTIME 90 days testosterone cypionate (Depo-Testosterone) 80 mg (0.4 mL) subcut QWEEK 4 weeks [facility] Medical History (Updated 02/19/25 @ 12:29 by Alexa Moyer PA-C) Class 2 obesity with body mass index (BMI) of 37.0 to 37.9 in adult Hypertension Cataract Osteoarthritis Elevated PSA Establishing care with new doctor, encounter for Restrictive lung disease Obstructive sleep apnea Chest tightness Surgical History History of surgery Family History Father No problems noted. Mother No problems noted. Social History Housing: House Alcohol intake: current Alcohol intake frequency: holidays/special occasions only Patient Tobacco Use Status: Former Tobacco user service: No Current occupational status: retired and disabled Cognitive needs: Yes (cane) Hearing needs: No Vision needs: Yes (reading glasses) Physical Exam Const Other: Well-nourished well-developed very friendly male awake alert and oriented x3 in no acute distress Extrem Other: Bilateral knee examination shows minimal effusions, palpable crepitus with range of motion, pain with range of motion, no instability Office Procedures AMB Joint Injection/Aspiration Joint Injection/Aspiration Primary Site: left knee Prep: site was prepped using aseptic technique Injected: 60 mg of (Durolane viscosupplementation) and 1% plain lidocaine Procedure: The patient tolerated the procedure well Coding 76218 - Large joint Procedure code (CPT) selection complete AMB Joint Injection/Aspiration Joint Injection/Aspiration Primary Site: right knee Prep: site was prepped using aseptic technique Injected: 60 mg of (Durolane viscosupplementation) and 1% plain lidocaine Procedure: The patient tolerated the procedure well Coding 84508 - Large joint Procedure code (CPT) selection complete Results Reviewed Results Reviewed: X-rays of the patient's bilateral knees taken previously show joint space narrowing, subchondral sclerosis, no acute bony abnormalities Assessment & Plan Assessment & Plan (1) Osteoarthritis of left knee: Code(s): M17.12 - Unilateral primary osteoarthritis, left knee Category: Medical (2) Osteoarthritis of right knee: Code(s): M17.11 - Unilateral primary osteoarthritis, right knee Category: Medical Plan Mr. Norman presents with bilateral knee pains due to osteoarthritis. The risks and benefits of bilateral knee Durolane viscosupplementation injections were discussed at length with the patient. The patient wished to proceed. He tolerated the injections well. He will continue with his home exercise program. He will contact me prior to his follow-up appointment in 3 months should any questions or concerns arise. I spent 21 minutes in reviewing the patient's records and imaging studies, seeing the patient and documenting in the medical record. Orders: Orders AMB Joint Injection/Aspiration Today M17.11 - Unilateral primary osteoarthritis, right knee AMB Joint Injection/Aspiration Today M17.12 - Unilateral primary osteoarthritis, left knee Coding Level of Care Code Est Pt Level 3 (98142) Complex EM visit Add On G2211 Diagnoses Osteoarthritis of left knee M17.12 Osteoarthritis of right knee M17.11 CPT Codes Coding - 45953 Large joint: 41106 - Large joint ([id number]) Coding - 48300 Large joint: 68304 - Large joint ([id number])
[2025-03-06 08:03] VITALS: BMI 37.9
== END 2025-03-06 08:17 | disposition home or self-care (01) ==
LOC: HO.HOS 07:48
PROVIDERS: Visit Provider Orthopaedic Surgery
DX: M17.0 Bilateral primary osteoarthritis of knee (principal)
CPT/HCPCS: 20610; 99213

== ENCOUNTER → 2025-03-06 07:48 | Outpatient (BNVA) | payer MEDICARE, MEDICAID, SELFPAY | PROVIDERS: Visit Provider Orthopaedic Surgery | DX: M17.0 Bilateral primary osteoarthritis of knee (principal); M25.561 Pain in right knee; M25.562 Pain in left knee | CPT/HCPCS: 20610; 99212; J2003; J7318 ==

== ENCOUNTER 2025-05-25 08:17 | Outpatient (REF) | payer MEDICARE, SELFPAY ==
[2025-05-25 08:59] LABS: Hematocrit 46.0 % (42.0-52.0); Hemoglobin 15.3 g/dl (14.0-18.0); Mean Corpuscular HGB Conc 33.3 g/dl (31.0-36.0); Mean Corpuscular Hemoglobin 30.7 pg (27.0-33.0); Mean Corpuscular Volume 92.2 fL (80.0-98.0); NRBC Abs Auto 0.000 X10*3/uL (0.0-0.012); NRBC Pct Auto 0.0 /100WBC (0.0-0.2); Platelet Count 187 X10*3/uL (160-400); Red Blood Count 4.99 X10*6/uL (4.60-5.80); White Blood Count 5.7 X10*3/uL (4.8-10.8)
[2025-05-25 09:55] LABS: PSA,Total (Free>4and<10) 5.05 ng/mL (0.00-4.00)
[2025-05-28 13:13] LABS: Free Prostate Spec Ag 1.0 ng/mL; Percent Free Prostate Spec Ag 20 % (calc) (>25)
[2025-05-31 16:38] LABS: Testosterone, Free 78.1 pg/mL (35.0-155.0)
== END 2025-05-25 08:18 | disposition home or self-care (01) ==
LOC: HO.LAB 08:17
PROVIDERS: PCP Physician Assistant Medical; Visit Provider Nurse Practitioner Family
DX: E29.1 Testicular hypofunction (principal); Z12.5 Encounter for screening for malignant neoplasm of prostate
CPT/HCPCS: 36415; 84153; 84154; 84402; 84403; 85027

== ENCOUNTER 2025-06-05 10:13 | Outpatient (AMB) | payer MEDICARE, SELFPAY ==
--- NOTE | 2025-06-05 10:29 | MHC.OFFVIS ---
Intake Visit Reasons: 6m/labs Intake Note: Patient is present for 6M/LABS Urology Medication:TERAZOSIN,TESTOSTRONE Antibiotic Allergy:CIPROFLOXACIN Blood Thinner:ASPIRIN Combine Mechanic Required: No Allergies ciprofloxacin (Cipro) Allergy (Unknown, Verified 06/05/25 22:34) had itchness once been on since lactose (Lactose) Adverse Reaction (Mild, Verified 06/05/25 22:34) DIARRHEA Medication List - Last Reconciled 06/05/25 by LADARIUS KongP- aspirin (Adult Low Dose Aspirin) 81 mg PO DAILY docusate sodium 100 mg PO DAILY fexofenadine (Allergy Relief (fexofenadine)) 180 mg PO DAILY fluticasone furoate-vilanterol 50-25 mcg/dose (Breo Ellipta) 1 ea inhalation DAILY losartan 50 mg PO DAILY naproxen 500 mg PO BID oxymetazoline 0.05% (Afrin (oxymetazoline)) 2 sprays intranasal Q12H PRN syringe with needle (UltiCare) DIRECTED, once weekly for testosterone injection terazosin 10 mg (2 x 5 mg) PO BEDTIME 90 days testosterone cypionate (Depo-Testosterone) 80 mg (0.4 mL) subcut QWEEK 4 weeks HPI Comments Details: Leon Max is a pleasant 64 year old male patient of Dr. Moyer.?He presents to the office today for follow-up of his hypogonadism and lower urinary tract symptoms.?In discussion with the patient today reports to be doing and feeling well.? He reports compliance with testosterone and terazosin as prescribed. Recent labs were reviewed with the patient today as noted and trended below: PSAs are as follows: 11/02 2.1, 01/05 3.1, 02/05 2.7, 09/08 3.3, 03/08 4.0, 09/09 4.5 % free PSA 27%, 12/08 4.1 % free PSA 23%, 06/09 5.1 % free PSA 20% Testosterone: 04/06 265, 07/07 288, 01/05 1083, 02/05 439, 09/08 693, 03/11 484, 09/09 861, 12/08 607, 06/09 422 Hemoglobin & hematocrit: 03/08 15.6/46.4, 09/09 15.8/46.9, 12/08 15.1/45.7, 06/09 15.3/46.0 We reviewed labs and discussed elevated PSA. Patient had previously been on finasteride however was experiencing low-back pain in generalized fatigue and therefore has stopped taking the medication. He does report episodes of urinary frequency however feels he is managing this well with 10 mg of terazosin daily. In office urinalysis results reviewed with the patient today. Previous workup 03/07 has included a retroperitoneal ultrasound noting bilateral kidneys with no calculi, lesions, and or hydronephrosis noted. 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 This is similar to prior exam. Bilateral ureteral jets are demonstrated. Prevoid bladder volume is 180 mL. Postvoid bladder volume is 22 mL. Prostate gland is enlarged measuring approximately 60 mL. He otherwise denies incontinence, hematuria, dysuria, foul smelling urine, flank pain, fever, and or chills. Patient otherwise denies any issues or concerns at this time. Previous note.... Lower urinary tract symptoms Initial Waking more than 2 times at night to urinate , Weakness of stream , Feeling of incomplete emptying Symptoms ongoing No prior prostate medications Previous medication tamsulosin Ultrasound 20 g prostate with good emptying Hypogonadism Previous investigation Has gained weight significantly since then Had traumatic event 2 years ago with multiple broken bones and pain medication use Uses low-dose THC for sleeping Recommend baseline laboratory evaluation for opioid induced hypogonadism, JANNETH induced hypogonadism, obesity induced hypogonadism Labs - 04/06 T 265/240, 07/07 290, 01/05 1083 PSA 01/05--3.1 . [facility] Medical History Class 2 obesity with body mass index (BMI) of 37.0 to 37.9 in adult Hypertension Cataract Osteoarthritis Elevated PSA Establishing care with new doctor, encounter for Restrictive lung disease Obstructive sleep apnea Chest tightness Surgical History History of surgery Family History Father No problems noted. Mother No problems noted. Social History Housing: House Alcohol intake: current Alcohol intake frequency: holidays/special occasions only Patient Tobacco Use Status: Former Tobacco user service: No Current occupational status: retired and disabled Cognitive needs: Yes (cane) Hearing needs: No Vision needs: Yes (reading glasses) Review of Systems Const Reports as per HPI Eyes Reports no additional complaints ENT Reports no additional complaints Card Reports no additional complaints Resp Reports no additional complaints GI Reports no additional complaints Reports as per HPI Musc Reports no additional complaints Neuro Reports as per HPI Psych Reports no additional complaints Endo Reports no additional complaints Hernán/Lymph Reports no additional complaints Aller/Immun Reports no additional complaints Physical Exam Const General: cooperative, healthy appearing, comfortable, no acute distress, well developed, alert and awake Nutritional Appearance: overweight Orientation/consciousness: patient oriented x3 Limitations: no limitations HEENT Head: Yes normal to inspection, Yes normocephalic and Yes atraumatic Ears: hearing grossly normal bilaterally Eyes General: appearance normal, both eyes and all related structures Neck Neck: Yes normal visual inspection and Yes trachea midline Chest Chest palpation & inspection: normal inspection of the chest Resp Effort & Inspection: normal respiratory effort and able to speak in complete sentences Cardio Rate: regular rate GI Inspection: Yes normal to inspection General: Yes no CVA tenderness Back/Spine/Pelvis Back: no CVA tenderness Skin General skin exam: no rashes or lesions noted Neuro General: patient oriented x3 Extrem General: Yes normal to inspection Psych Appearance: grossly normal and well kempt Mental Status: mental status grossly normal Speech and movement: Normal speech and movement present and Clear speech present Affect: normal affect Attitude: cooperative Thought process: Normal thought process present Thought content: Normal thought content present Insight: Fair insight present (Psych) Judgement: Fair judgement present (Psych) Results AMB Urinalysis, Automated UA Leukoctes 0 Emile/uL Last Edit by CHRISTIAN Santo on 06/05/25 10:45 UA Nitrite Negative Last Edit by CHRISTIAN Santo on 06/05/25 10:45 UA Urobilinogen 0.2 mg/dL Last Edit by CHRISTIAN Santo on 06/05/25 10:45 UA Protein 0 mg/dL Last Edit by CHRISTIAN Santo on 06/05/25 10:45 UA pH 7.0 Last Edit by CHRISTIAN Santo on 06/05/25 10:45 UA Blood 0 Ryan/uL Last Edit by CHRISTIAN Santo on 06/05/25 10:45 UA Specific [place] 1.015 Last Edit by CHRISTIAN Santo on 06/05/25 10:45 UA Ketone Negative Last Edit by CHRISTIAN Santo on 06/05/25 10:45 UA Bilirubin 0 mg/dL Last Edit by CHRISTIAN Santo on 06/05/25 10:45 UA Glucose 0 mg/dL Last Edit by CHRISTIAN Santo on 06/05/25 10:45 Results Reviewed Results Reviewed: Laboratory Last Values Urine pH (Auto) 7.0 06/05/25 10:43 Specific [place] (Auto) 1.015 06/05/25 10:43 Urine Protein (Auto) 0 mg/dL 06/05/25 10:43 Glucose (UA)(Auto) 0 mg/dL 06/05/25 10:43 Urine Ketones (Auto) Negative 06/05/25 10:43 Urine Blood (Auto) 0 Ryan/uL 06/05/25 10:43 Urine Nitrite (Auto) Negative 06/05/25 10:43 Urine Bilirubin (Auto) 0 mg/dL 06/05/25 10:43 Urine Urobilinogen (Auto) 0.2 mg/dL 06/05/25 10:43 Leukocyte Esterase (Auto) 0 Emile/uL 06/05/25 10:43 Assessment & Plan Assessment & Plan (1) Elevated PSA: Code(s): R97.20 - Elevated prostate specific antigen [PSA] Category: Medical (2) Hypogonadism in male: Code(s): E29.1 - Testicular hypofunction Category: Medical (3) Bladder outlet obstruction: Code(s): N32.0 - Bladder-neck obstruction Category: Medical (4) Nocturia more than twice per night: Code(s): R35.1 - Nocturia Category: Medical (5) Enlarged prostate: Code(s): N40.0 - Benign prostatic hyperplasia without lower urinary tract symptoms Category: Medical Plan In office urinalysis results reviewed with the patient today; as noted above. Recent hemoglobin, hematocrit, PSA, and testosterone results reviewed with the patient today; as noted above. He reports be happy with current voiding parameters on terazosin; will continue; refill provided. Continue testosterone as discussed and prescribed. We discussed potential causes of elevated PSA as well as further treatment options and risks and benefits of these treatment options. All questions were answered. Will obtain MRI of the prostate for further assessment evaluation. Patient currently denies any bothersome urinary issues or concerns. Will continue with surveillance monitoring. Follow-up in 6 months with imaging and labs to be completed prior; or sooner with any issues, concerns, and or questions. Orders: Orders AMB Urinalysis Automated Today Z13.9 - Encounter for screening, unspecified PSA,Total (Free>4and<10) 6 Months E11.69 - Type 2 diabetes mellitus with other specified complication, N52.1 - Erectile dysfunction due to diseases classified elsewhere MR Prostate wo/w con Today R97.20 - Elevated prostate specific antigen [PSA] Testosterone, Total 6 Months C61 - Malignant neoplasm of prostate Complete Blood Count no Diff 6 Months E29.1 - Testicular hypofunction Medications: Refilled terazosin 10 mg (2 x 5 mg) PO BEDTIME 180 caps 1RF 90 days N40.1 - Benign prostatic hyperplasia with lower urinary tract symptoms, R35.0 - Frequency of micturition syringe with needle (UltiCare) DIRECTED, once weekly for testosterone injection 30 ea 6RF testosterone cypionate (Depo-Testosterone) 80 mg (0.4 mL) subcut QWEEK 2 mL 5RF 4 weeks E29.1 - Testicular hypofunction, [id number] Patient Instructions: The patient had an opportunity to ask questions regarding the treatment plan. All questions were answered. Physical exam, labs, and imaging were discussed and reviewed in detail. As well as risks, benefits, and discussion of treatment choices. No major barriers to understanding were identified. The patient expressed understanding and agreement with the above treatment plan. The patient was made aware they should contact our office by phone for worsening of their current condition, the appearance of new symptoms, or with any questions or concerns. Compliance is encouraged with any medications and follow up testing that is ordered. It is a privilege to be allowed the opportunity to participate in? your urological care.? Again, if you have any questions or concerns If you have any questions or concerns please do not hesitate to contact me. The office is [phone]. This note is constructed using voice recognition software. While every effort has been made to ensure accuracy drying machine receiver errors may have been included. Yours sincerely, Palak Marino, LEHR STRIPPER-BC Coding Level of Care Code Est Pt Level 4 (64695) Complex EM visit Add On G2211 Diagnoses Elevated PSA R97.20 Hypogonadism in male E29.1 Bladder outlet obstruction N32.0 Nocturia more than twice per night R35.1 Enlarged prostate N40.0 Time Spent (min) 40
--- OUTSIDE RECORDS SUMMARY | 2025-06-05 12:00 | XMS_ITS | Clinical Summary ---
Author Organization [employer] Address [address] [place] [address] Care Team Providers Care Home Care Attendant Name Role Phone Unavailable Primary Care Provider [...] DAILY FOR 7 DOSES 2 Active Immunizations Immunization Administration Dates Next Due INFLUENZA INJECTABLE QUADRIV [...] B[employer]ings 09/24/2023 09/23/2022 COVID-19 Vaccine ( season) 2025 07/16/2021, 12/04/2020, 11/04/2020 Influenza Vaccine (#1) 2025 2, 04/10/2021, 04/25/2020, Additional history exists DTaP/Tdap/Td [...] patient's age to complete this topic Meningococcal B Vaccine Aged Out No l onger eligible based on patient's age to complete [...] Most Recently Relevant to Health Maintenance Insurance [facility]ENTAL-[facility] MEDICAID STAND ADULT
--- OUTSIDE RECORDS SUMMARY | 2025-06-05 12:00 | XMS_ITS | Encounter Summary ---
Author Organization [employer] Address [address] [place] [address] Care Team Providers Care Managing Partner [employer] Name Role Phone Unavailable Primary Care Provider Unavailabl e Encounter Details Date Type Department Care Team (Late st Contact Info) Description 10/16/2022 Abstract [facility] [address] [place] [address] Cherelle Geller DDS [address] [place] [address] Social History Tobacco Use Types Packs/Day Years [...]
== END 2025-06-05 11:16 | disposition home or self-care (01) ==
LOC: HO.HUSH 10:14
PROVIDERS: PCP Internal Medicine; Visit Provider Nurse Practitioner Family
DX: R97.20 Elevated prostate specific antigen [PSA] (principal); E29.1 Testicular hypofunction; N32.0 Bladder-neck obstruction; R35.1 Nocturia; N40.0 Benign prostatic hyperplasia without lower urinary tract symptoms; Z13.9 Encounter for screening, unspecified
CPT/HCPCS: 99214; G2211

== ENCOUNTER → 2025-06-05 10:13 | Outpatient (BNVA) | payer MEDICARE, SELFPAY | PROVIDERS: PCP Internal Medicine; Visit Provider Nurse Practitioner Family | DX: R97.20 Elevated prostate specific antigen [PSA] (principal); E29.1 Testicular hypofunction; N40.1 Benign prostatic hyperplasia with lower urinary tract symptoms; N32.0 Bladder-neck obstruction; R35.1 Nocturia | CPT/HCPCS: 81003; 99212 ==

== ENCOUNTER 2025-06-06 08:19 | Outpatient (AMB) | payer MEDICARE, SELFPAY ==
--- NOTE | 2025-06-06 08:23 | MHC.OFFVIS ---
Intake Visit Reasons: Bilateral knee pain Intake Note: Leon is a 64 year old male who presents with complaints of bilateral knee pains. He has had cortisone injections in the past which gave him minimal relief. He has also had Durolane injections which gave him fairly good relief. At this point his bilateral knee pains are interfering with his activities of daily living and his ability to sleep well through the night. He has tried Tylenol and anti-inflammatory medicines which gave him minimal relief. He wishes to hold off on total knee replacement surgery if at all possible. Allergies ciprofloxacin (Cipro) Allergy (Unknown, Verified 06/06/25 08:28) had itchness once been on since lactose (Lactose) Adverse Reaction (Mild, Verified 06/06/25 08:28) DIARRHEA Medication List - Last Reconciled 06/06/25 by Juan Romero MD aspirin (Adult Low Dose Aspirin) 81 mg PO DAILY docusate sodium 100 mg PO DAILY fexofenadine (Allergy Relief (fexofenadine)) 180 mg PO DAILY fluticasone furoate-vilanterol 50-25 mcg/dose (Breo Ellipta) 1 ea inhalation DAILY losartan 50 mg PO DAILY naproxen 500 mg PO BID oxymetazoline 0.05% (Afrin (oxymetazoline)) 2 sprays intranasal Q12H PRN syringe with needle (UltiCare) DIRECTED, once weekly for testosterone injection terazosin 10 mg (2 x 5 mg) PO BEDTIME 90 days testosterone cypionate (Depo-Testosterone) 80 mg (0.4 mL) subcut QWEEK 4 weeks [facility] Medical History Class 2 obesity with body mass index (BMI) of 37.0 to 37.9 in adult Hypertension Cataract Osteoarthritis Elevated PSA Establishing care with new doctor, encounter for Restrictive lung disease Obstructive sleep apnea Chest tightness Surgical History History of surgery Family History Father No problems noted. Mother No problems noted. Social History Housing: House Alcohol intake: current Alcohol intake frequency: holidays/special occasions only Patient Tobacco Use Status: Former Tobacco user service: No Current occupational status: retired and disabled Cognitive needs: Yes (cane) Hearing needs: No Vision needs: Yes (reading glasses) Physical Exam Const Other: Well-nourished well-developed very friendly male awake alert and oriented x3 in no acute distress Extrem Other: Bilateral knee examination shows minimal effusions, palpable crepitus with range of motion, pain with range of motion, no instability Results Reviewed Results Reviewed: X-rays of the patient's bilateral knees taken previously show joint space narrowing, subchondral sclerosis, no acute bony abnormalities Assessment & Plan Assessment & Plan (1) Bilateral knee pain: Code(s): M25.561 - Pain in right knee; M25.562 - Pain in left knee Category: Medical (2) Osteoarthritis of left knee: Code(s): M17.12 - Unilateral primary osteoarthritis, left knee Category: Medical (3) Osteoarthritis of right knee: Code(s): M17.11 - Unilateral primary osteoarthritis, right knee Category: Medical Plan Mr. Norman presents with bilateral knee pains due to osteoarthritis. I had a lengthy discussion with the patient regarding the treatment options. He wishes to hold off on total knee replacement surgery if at all possible. I agree with this plan. I will see if the patient's insurance company will cover a another Durolane injection for both of his knees. I will see him back once the injections are available. Feel free to call me at any time should questions regarding his orthopedic management arise. I spent 21 minutes in reviewing the patient's records and imaging studies, seeing the patient and documenting in the medical record. Coding Level of Care Code Est Pt Level 3 (31898) Complex EM visit Add On G2211 Diagnoses Bilateral knee pain M25.561; M25.562 Osteoarthritis of left knee M17.12 Osteoarthritis of right knee M17.11
== END 2025-06-06 08:37 | disposition home or self-care (01) ==
LOC: HO.HOS 08:20
PROVIDERS: PCP Physician Assistant Medical; Visit Provider Orthopaedic Surgery
DX: M17.0 Bilateral primary osteoarthritis of knee (principal)
CPT/HCPCS: 99213; G2211

== ENCOUNTER → 2025-06-06 08:19 | Outpatient (BNVA) | payer MEDICARE, SELFPAY | PROVIDERS: PCP Physician Assistant Medical; Visit Provider Orthopaedic Surgery | DX: M17.0 Bilateral primary osteoarthritis of knee (principal); M25.561 Pain in right knee; M25.562 Pain in left knee; Z79.899 Other long term (current) drug therapy | CPT/HCPCS: 99212 ==

== ENCOUNTER 2025-07-16 09:19 | Outpatient (REF) | payer MEDICARE, SELFPAY ==
[2025-07-16 14:39] LABS: Resp Syncy Virus RNA Qual PCR NEGATIVE (Negative); SARS COV2 PCR INHOUSE NEGATIVE (Negative)
== END 2025-07-16 09:20 | disposition home or self-care (01) ==
LOC: HO.LAB 09:19
PROVIDERS: PCP Physician Assistant Medical; Visit Provider Physician Assistant Medical
DX: J44.0 Chronic obstructive pulmonary disease with (acute) lower respiratory infection (principal); R05.1 Acute cough; R09.89 Other specified symptoms and signs involving the circulatory and respiratory systems; Z87.891 Personal history of nicotine dependence
CPT/HCPCS: 87637; 99212

== ENCOUNTER 2025-07-16 09:19 | Outpatient (AMB) | payer MEDICARE, SELFPAY ==
[2025-07-16 09:21] VITALS: BP 132/60; PULSE 96; TEMP 37.3; O2SAT 95; BMI 39.5
--- NOTE | 2025-07-16 09:21 | AM.OFFWIN_ITS ---
Intake Vital Signs 07/16/25 09:21 Height 5 ft 8 in Weight 260 lb BMI 39.5 BP 132/60 Blood Pressure Location Lt brachial Position Sitting Pulse 96 Pulse Source Pulse Oximeter Temp 99.1 F Temp Source Oral Pulse Oximetry (%) 95 Oxygen Delivery Method Room Air Intake Visit Reasons: EP Chills, cold symptoms, phlegm Intake Note: pt presents with chest congestion, productive coughing with yellow phlegm, sinus congestion, body chills and body aches since yesterday Patient Tobacco Use Status: Former Tobacco user Allergies ciprofloxacin (Cipro) Allergy (Unknown, Verified 07/16/25 09:26) had itchness once been on since lactose (Lactose) Adverse Reaction (Mild, Verified 07/16/25 09:26) DIARRHEA Do you need a note to return to daycare/school/sports/work: No HPI HPI Comments History of Present Illness Details History - The patient is a 65 year old individua l presenting with a cough and congestion. - Symptoms began yesterday, and the luz ent has tried Mucinex and Tylenol for relief. - The patient reports coughing up green sputum and has had a runny nose for the past eight months. - The patient has been having SOB and wh eezing. - The patient has a history of COPD and asthma. - The COPD developed after workplace exp osure to methium chloride, which led to a four-year period on oxygen and being bedridden for eight months. - The patient takes Breo, which has redu martha the need for an albuterol inhaler. - For previous similar episodes, the pat ient was treated with prednisone and antibiotics. - Past medical history is also significa nt for a 2-inch skull fracture, which causes memory difficulties. - There is a potential exposure to COVID -19 at a recent libertarian. - He denies fever, chills, chest pain, a bd pain, or n/v/d. Physical Exam General: Cooperative, healthy appearing, comfortable and no acute distress Orientation/consciousness: Patient oriented x3 Limitations: No limitations Head: Normal to inspection Ears: Hearing grossly normal bilaterally, external ears normal and TM's normal bilaterally Nose: Normal external nose present, normal nares present, and no nasal discharge present. Face and sinus: Sinuses nontender to palpation. Mouth: Normal oral and palatal mucosa present and moist mucous membranes noted. Throat: Tonsils normal. Uvula is midline. Posterior oropharynx with erythema and no exudates. Eyes: Appearance normal, both eyes and all related structures Neck: Normal visual inspection, full ROM. No lymphadenopathy noted. Respiratory: Clear to auscultation bilaterally. Normal respiratory effort, able to speak in complete sentences. No respiratory distress, not tachypneic, no tripod positioning and no use of accessory muscles. Cardiovascular: Regular rate and rhythm. Normal S1 and S2 Skin: No rashes or lesions noted Patient was informed and verbally consented to the use of an ambient scribe for clinic note documentation during this visit [facility] Medical History Class 2 obesity with body mass index (BMI) of 37.0 to 37.9 in adult Hypertension Cataract Osteoarthritis Elevated PSA Establishing care with new doctor, encounter for Restrictive lung disease Obstructive sleep apnea Chest tightness Surgical History History of surgery Family History Father No problems noted. Mother No problems noted. Social History Housing: House Alcohol intake: current Alcohol intake frequency: holidays/special occasions only Patient Tobacco Use Status: Former Tobacco user service: No Current occupational status: retired and disabled Cognitive needs: Yes (cane) Hearing needs: No Vision needs: Yes (reading glasses) Review of Systems Const All systems reviewed & are unremarkable except as noted in HPI and below Physical Exam Vital Signs: Last Vital Signs Temp 99.1 F 07/16/25 09:21 Pulse 96 07/16/25 09:21 BP 132/60 07/16/25 09:21 Pulse Ox 95 07/16/25 09:21 Oxygen Delivery Method Room Air 07/16/25 09:21 BMI result Body Mass Index 39.5 Assessment & Plan Assessment & Plan (1) COPD (chronic obstructive pulmonary disease): Code(s): J44.9 - Chronic obstructive pulmonary disease, unspecified Qualifiers: COPD type: COPD with acute lower respiratory infection Qualified Code(s): J44.0 - Chronic obstructive pulmonary disease with (acute) lower respiratory infection (2) Cough: Code(s): R05.9 - Cough, unspecified Qualifiers: Cough type: acute Qualified Code(s): R05.1 - Acute cough Plan Most likely COPD exacerbation vs URI vs bronchitis vs CAP vs viral illness plan - A viral panel for COVID, flu, and RSV will be performed. - Prednisone, a Z-Jemal, and cough medicine will be prescribed. - It was advised that the antibiotics can be discontinued if the viral panel returns positive, as the infection would not be bacterial. - will call with the results - follow up with PCP Orders: Orders SARS-CoV2/FLU/RSV Today R09.89 - Other specified symptoms and signs involving the circulatory and respiratory systems Medications: New prednisone 40 mg (2 x 20 mg) PO DAILY 10 tabs 0RF 5 days benzonatate 100 mg PO bid-tid PRN 21 caps 0RF Cough 7 days amoxicillin-pot clavulanate 875-125 mg 1 tab PO Q12H 14 tabs 0RF Coding Level of Care Code Est Pt Level 3 (63932) Diagnoses Chronic obstructive pulmonary disease with acute lower respiratory infection J44.0 COPD type: COPD with acute lower respiratory infection Acute cough R05.1 Cough type: acute
--- OUTSIDE RECORDS SUMMARY | 2025-07-16 10:57 | XMS_ITS | Encounter Summary ---
Author Organization [employer] Address [address] [place] [address] Care Team Providers Care Coil Winder Name Role Phone Unavailable Primary Care Provider Unavailabl e Encounter Details Date Type Department Care Team (Late st Contact Info) Description 10/16/2022 Abstract [facility] [address] [place] [address] Cherelle Geller DDS [address] [place] [address] Social History Tobacco Use Types Packs/Day Years [...]
--- OUTSIDE RECORDS SUMMARY | 2025-07-16 10:57 | XMS_ITS | Clinical Summary ---
Author Organization [employer] Address [address] [place] [address] Care Team Providers Care Statistical Clerk Advertising Name Role Phone Unavailable Primary Care Provider [...] Most Recently Relevant to Health Maintenance Insurance [facility] MEDICAID STAND ADULT
== END 2025-07-16 10:18 | disposition home or self-care (01) ==
PROVIDERS: PCP Physician Assistant Medical; Visit Provider Physician Assistant Medical
DX: J44.0 Chronic obstructive pulmonary disease with (acute) lower respiratory infection (principal); R05.1 Acute cough